=== PATIENT | female | born 1935 | race Caucasian/White ===

== ENCOUNTER 2023-10-18 17:01 | Inpatient (IN) | payer MEDICARE, OTHER, SELFPAY ==
[2023-10-18] VITALS (7 sets, daily range): BP systolic 135–164; BP diastolic 76–141; BMI 31.7
[2023-10-18 15:19] LABS: % Basophils 0.5 % (0-2); % Eosinophils 2.1 % (0-6); % Immature Granulocytes 0.6 % (0-0.5); % Lymphocytes 11.5 % (20.5-51.1); % Neutrophils 79.3 % (42.2-75.2); Absolute Basophils 0.1 10^3/uL (0-0.2); Absolute Eosinophils 0.3 10^3/uL (0-0.7); Absolute Immature Granulocytes 0.1 10^3/uL (0-0.05); Absolute Lymphocytes 1.5 10^3/uL (1.2-3.4); Absolute Monocytes 0.8 10^3/uL (0.1-0.6); Hematocrit 37.1 % (37.0-47.0); Hemoglobin 12.5 g/dL (12.0-16.0); Mean Corp Hgb Conc. 33.7 g/dL (33.0-37.0); Mean Corpuscular Hgb 31.6 pg (27.0-31.0); Mean Corpuscular Volume 93.7 fL (81.0-99.0); Mean Platelet Volume 10.6 fL (7.4-10.4); Nucleated Red Blood Cells % 0 %; Platelet Count 177 10^3/uL (130-400); Red Blood Cell Count 3.96 10^6/uL (4.20-5.40); Red Cell Dist. Width 12.6 % (11.5-14.5); White Blood Cell Count 12.6 10^3/uL (4.8-10.8)
[2023-10-18 15:33] LABS: ALT (SGPT) 20 U/L (0-35); AST (SGOT) 30 U/L (14-36); Albumin 4.1 g/dl (3.5-5.0); Alkaline Phosphatase 65 U/L (38-126); Blood Urea Nitrogen 29 mg/dl (7-17); Calcium 9.1 mg/dl (8.4-10.2); Carbon Dioxide 27 mmol/L (22-30); Chloride 105 mmol/L (98-107); Estimated Creatinine Clearance 56 ml/min; Glucose 97 mg/dl (70-99); Potassium 4.5 mmol/L (3.5-5.1); Sodium 137 mmol/L (135-145); Total Bilirubin 0.7 mg/dl (0.2-1.3); eGFR > 60.00
--- NOTE | 2023-10-18 16:00 | EDRN ---
this RN noticed that the pts PIV was lying next to the pt in the stretcher, LAC PIV site was not bleeding, this RN cleaned the LAC site and placed a pressure dressing, PIV catheter was in tact, this RN asked the pt what happened and the pt started
laughing and stated, 'I don't know dear, beats me', this RN notified the emergency room provider and stated that the pt does not need a PIV at this time and notified this RN not to place another PIV at this time
--- NOTE | 2023-10-18 16:00 | ED.GENMED ---
History of Present Illness
General
Chief Complaint: Fall
Source: patient
Exam Limitations: dementia
Time Seen by Provider: 10/18/23 14:22
Travel History
Have you had any contact with someone who has COVID-19?: No
Do you have any symptoms of coronavirus? Fever > 100 degrees, chills, cough, shortness of breath, sore throat, loss of taste or smell, muscle aches, or headache?: No
History of Present Illness
History of Present Illness:
88-year-old female who presents after fall at an extended care facility. Patient does have a history of dementia. Patient offers no complaints. No reported head strike. No loss consciousness.
Past History
Past History
ED Past Medical History: CAD, HTN, Hypercholesterolemia and Other (Sleep apnea, dementia)
ED Past Surgical History: None
Social History
Tobacco: Non-smoker
Alcohol: Occasional
Personal:
Living: with family
Phy Exam
Physical Exam
Physical Exam:
CONSTITUTIONAL Patient alert and oriented to person. Well-appearing. Vital signs reviewed.
HEAD atraumatic, normocephalic.
EYES eyelids normal to inspection, Extraocular muscles intact, Conjunctiva normal, Sclera normal.
NECK normal range of motion, Trachea midline, no jugular venous distention.
RESPIRATORY CHEST No respiratory distress noted, Chest expansion equal
ABDOMEN abdomen nontender, Bowel sounds normal. No distention.
BACK normal inspection, no obvious deformities
UPPER EXTREMITY range of motion normal, Motor strength normal, no cyanosis, no edema.
LOWER EXTREMITY no cyanosis, no edema. Unable to range left hip. Pain that is obvious with internal and external rotation during exam.
NEURO Speech clear and moving all extremities
Course
Orders/Labs/Results
Orders:
Orders
10/18/23 Breakfast
Regular
At Your Request: Non-Participating
10/18/23 14:32
Hip, Left 2-3 Views [CR Hip - LT w/wo Pel 2-3 Vw*] Urgent
Comment:
Reason For Exam: fall
Include a pelvis x-ray?: Yes
10/18/23 14:55
Complete Blood Count/With Diff Urgent
Comprehensive Metabolic Panel Urgent
10/18/23 16:24
Urinalysis Reflex To Culture Routine
10/18/23 16:25
Admit/Transfer Patient As Directed
Co-Sign Provider:
Level of Care: Inpatient admission
Assign to:: Medical/Surgical
Physician / Group: jeanette
Diagnosis: left hip fracture
Reason for Hospitalization: left hip fracture
Expected length of stay greater than two midnights?: Yes
ELOS- Estimated Length of Stay in days: 3
I certify the patient meets the requirements for IP care: Yes
10/18/23 16:26
Code Status As Directed
Resuscitation Status: Do not resuscitate
Reached after discussion with pt or family/Healthcare POA: Yes
DNR Bracelet Application ONCE
10/18/23 16:49
EKG [Electrocardiogram (*1)] Stat
Reason for Study: PreOp
10/18/23 17:41
Acetaminophen [Tylenol] 650 mg PO Q4HPRN PRN
Magnesium Hydroxide [Milk of Magnesia] 30 ml PO DAILYPRN PRN
Oxycodone [Roxicodone] 5 mg PO Q4HPRN PRN
Tamsulosin [Flomax] 0.4 mg PO DAILYPRN PRN
10/18/23 17:41
ORTHOPEDIC CONSULT Routine
Consulting Provider: Ron Luna
Was physician already notified: Yes
Activity As Directed
Activity Level: Bedrest
Bladder Scan As Directed
Follow Bladder Retention/Intermittent Cath Algorithm?: Yes
PRN if no void in __ hours: 6
Comment: if not voiding 6 hrs upon arrival to floor, bladder scan & follow algorithm
Intake/ Output As Directed
Frequency: Per unit guidelines
Pneumatic Compression Sleeves As Directed
Type: Thigh high
Straight Cath As Directed
Frequency: Per Retention Algorithm
Additional Instructions: straight cath as needed per acute urinary retention algorithm for 24 hrs
Additional Instructions: for bladder scan greater than 400 mL
Vital Signs As Directed
Frequency: Per unit guidelines
DX Deep Vein Thrombosis Video Routine
10/18/23 18:30
Carvedilol [Coreg] 3.125 mg PO BID@0830,1830
10/18/23 20:00
Docusate Sodium [Colace] 100 mg PO BID
Sennosides [Senokot] 17.2 mg PO BID
10/19/23 06:00
BMP [Basic Metabolic Panel] IN AM
CBC/No Diff [Complete Blood Count/No Diff] IN AM
10/19/23 08:30
Aspirin Chewable [Low Strength Aspirin] 81 mg PO DAILY@0830
Sertraline HCl [Zoloft] 75 mg PO DAILY@0830
10/20/23 Breakfast
NPO
Allow oral meds: Yes
Allow clear liquids: Sips of Clears
BMP [Basic Metabolic Panel] IN AM
CBC/No Diff [Complete Blood Count/No Diff] IN AM
10/21/23 06:00
BMP [Basic Metabolic Panel] IN AM
CBC/No Diff [Complete Blood Count/No Diff] IN AM
10/22/23 06:00
BMP [Basic Metabolic Panel] IN AM
CBC/No Diff [Complete Blood Count/No Diff] IN AM
10/23/23 06:00
BMP [Basic Metabolic Panel] IN AM
Abnormal Lab Results
10/18/23
14:55
WBC 12.6 H 10^3/uL
(4.8-10.8)
RBC 3.96 L 10^6/uL
(4.20-5.40)
MCH 31.6 H pg
(27.0-31.0)
MPV 10.6 H fL
(7.4-10.4)
Abs Immat Gran (auto) 0.1 H 10^3/uL
(0-0.05)
Absolute Neuts (auto) 10.0 H 10^3/uL
(1.4-6.5)
Absolute Monos (auto) 0.8 H 10^3/uL
(0.1-0.6)
Immature Gran % 0.6 H %
(0-0.5)
Neutrophils % 79.3 H %
(42.2-75.2)
Lymphocytes % 11.5 L %
(20.5-51.1)
BUN 29 H mg/dl
(7-17)
10/18/23 14:55
10/18/23 14:55
Vital Signs
Initial and Last Documented VS:
Initial Vital Signs
Temp Pulse Resp BP Pulse Ox
97.9 F 69 16 143/128 98
10/18/23 14:04 10/18/23 14:04 10/18/23 14:04 10/18/23 14:04 10/18/23 14:04
Last Documented Vital Signs
Temp Pulse Resp BP Pulse Ox
97.9 F 88 18 149/99 93
10/18/23 17:30 10/18/23 19:44 10/18/23 18:57 10/18/23 19:44 10/18/23 18:57
MDM/Problems Addressed
MDM/Problems Addressed:
Hip fracture
*Radiology
Radiology exam reviewed: preliminary read by ED provider (Left hip fracture)
*Pulse Oximetry
Patient hypoxic: no
*Critical Care Note
Total Time (30-74mins, 75-104mins- exclusive of procedures): Not Applicable
Data Reviewed
Source: patient
Prescriptions/Medications Considered But Not Given:
Consider pain medication patient appears quite comfortable
Further Testing Considered But Not Given:
Consider head CT but no evidence of head injury
Patient Management
Discussion with other providers: Hospitalist, Contract Assistant (Case discussed with orthopedic) and Radiologist
Escalation/DeEscalation of care consider admission/obs:
80-year-old with left hip fracture. Admit. Stable
ED Attending Note
-
Portions of this chart may have been created with voice recognition software.� Occasional wrong word or��sound alike� substitutions may have occurred due to the inherent limitations of voice recognition software.
Discharge Plan
Departure
Patient Disposition: Admit
Date of Disposition: 10/18/23
Time of Disposition: 16:02
Admit to: Med/Surg
Presentation/result/management discussed w/ accepting MD/DO: Hospitalist
Discharge Problem:
Closed hip fracture
Interventions
Interventions:
*Risk Screen - Suicide Last Done: 10/18/23 14:04
*General Assessment Last Done: 10/18/23 14:04
*Neglect/Abuse Screening Last Done: 10/18/23 14:04
ED- Fall Risk Assessment Last Done: 10/18/23 14:04
*ED COVID-19 Vaccine History Last Done: 10/18/23 14:04
*Nursing Disposition Last Done: 10/18/23 17:41
ED- Cardiac Assessment Last Done: 10/18/23 14:04
ED-Musculoskeletal Assessment Last Done: 10/18/23 14:04
ED- Neurological Assessment Last Done: 10/18/23 14:04
ED-Skin Assessment Last Done: 10/18/23 14:04
Discharge Date and Time
Discharge Date/Time: 10/18/23 17:41
--- NOTE | 2023-10-18 16:08 | HPS.HSE ---
Addendum entered and electronically signed by Romaine Velasco MD 10/18/23 17:37:
Seen and examined by me independently in collaboration with the nurse practitioner Kun.
Past medical history/social history/medication/allergies reviewed.
Lab data and imaging data reviewed.
Demented and pleasantly confused lady presents after having had a fall in her facility and sustaining a left hip fracture.
She is in the ER smiling and laughing with no meaningful conversations. She is in no extremis. No respiratory distress noted. Hemodynamically stable. Heart sounds S1 plus S2 heard regular. Do not appreciate any murmur at bedside. Abdomen
benign. Chest clear.
No lower extremity edema.
Lab data and imaging data reviewed.
Admit to hospital for surgical correction of her fracture.
Difficult to assess exercise capacity because of her dementia and she lives [facility]. But no known clinical risk predictors other than advanced age.EKG pending - if no acute ST/T changes she is felt to be at acceptable risk
for CV event for proposed surgery . No further cardiac testing would change her risk.
Left message to son.
She is DNR per living will sent from her facility.
Original Note:
Family Physician
-
Family Physician:
Chief Complaint
-
Fall with left hip fracture
History of Present Illness
88-year-old vaginoplasty, hyperlipidemia, hypertension, anxiety, GERD, hypertension presented to us with left hip pain status post fall at [facility]. Patient is a poor historian. Attempted to reach [facility]. No one answering the
phone. Patient had a fall and [facility] and was complaining of left hip pain. Patient complains of pain.
Hip x-ray with acute nondisplaced transcervical t fracture of the left femoral neck
Admitting for further management
Medical History
Past Medical History
Past Medical History: Reports Other
Additional Past Medical History:
Hyperlipidemia
Hypertension
anxiety
Dementia
GERD
Past Surgical History: Reports Other
Additional Past Surgical History:
Cervical laminectomy
Total abdominal hysterectomy
Appendectomy
Bilateral knee replacement
Cataract extraction
Social History
Unable to obtain full social history at this time due to: Dementia
Family History
Family History: Not pertinent
Allergies / Home Medications
Allergies reflects when Allergies were last updated in [employer].
Home Medications with original date entered in [employer]
Allergy/Medication List:
Allergies
Allergy/AdvReac Type Severity Reaction Status Date / Time
No Known Allergies Allergy Unverified 04/05/19 16:05
Home Medications
acetaminophen 325 mg tablet (Tylenol) 650 mg PO BID@0800,1930 10/18/23
acetaminophen 325 mg tablet (Tylenol) 650 mg PO Q4H PRN mild pain/fever>100.4 10/18/23
aspirin 81 mg chewable tablet 81 mg PO DAILY@0830 10/18/23
bisacodyl 10 mg rectal suppository 10 mg MN DAILY PRN q 3 days if no BM and MOM/lactulose ineffective 10/18/23
carvedilol 3.125 mg tablet 3.125 mg PO BID@0830,1830 10/18/23
magnesium hydroxide 400 mg/5 mL oral suspension (Milk of Magnesia) 30 ml PO HSPRN PRN constipation 10/18/23
sertraline 50 mg tablet 75 mg PO DAILY@0830 10/18/23
Review of Systems
-
Unable to obtain full review of systems at this time due to: Dementia
Physical Exam
Vital Signs
Vital Signs
Temp Pulse Resp BP Pulse Ox
97.9 F 69 16 135/76 96
10/18/23 14:04 10/18/23 14:04 10/18/23 14:04 10/18/23 14:54 10/18/23 14:50
Physical Exam
General: Well Developed, Well Nourished and No Apparent Distress
HEENT: NormoCephalic, Moist mucous membranes and Atraumatic
Respiratory: Clear
Cardiac: S1/S2 and Regular Rhythm; No Murmur or Rub
GI: Soft, Non Tender, Non Distended and Normal Bowel Sounds; No Organomegaly
Rectal: Deferred by Provider
Musculoskeletal: No Clubbing, No Cyanosis, No Edema and Other (Left lower extremity shortened and externally rotated)
Skin: No Rash
Neuro: Nonfocal/grossly intact
Laboratory Results
-
10/18/23 14:55
10/18/23 14:55
Laboratory Results
Total Bilirubin 0.7 mg/dl (0.2-1.3) 10/18/23 14:55
AST 30 U/L (14-36) 10/18/23 14:55
ALT 20 U/L (0-35) 10/18/23 14:55
Alkaline Phosphatase 65 U/L (38-126) 10/18/23 14:55
Data Reviewed
-
Diagnostic Radiology: Report Reviewed by me
Lab Data: Labs Reviewed by me
Impression/Plan
-
# Left hip fracture after fall
-hip x ray with ACUTE NONDISPLACED TRANSCERVICAL FRACTURE of the LEFT FEMORAL NECK.
-obtain EKG preoperatively
-bed rest
-PT/OT after orthopedics eval
-tylenol oxy for pain
-Hip precautions
-PT OT consulted
-Orthopedics consulted
# Leukocytosis likely stress reaction
-Patient is afebrile
-WBC 12.6
-Obtain urinalysis
# Hypertension
-Blood pressure stable in ER
-Coreg continued.
# Anxiety/dementia
-Sertraline continued
# DVT prophylaxis
-SCD
# CODE STATUS
-DNR
--- NOTE | 2023-10-18 17:25 | EDRN ---
this RN called the receiving unit and notified them that paper report was going to be tubed up
--- NOTE | 2023-10-18 18:28 | CON.ORTHO ---
Consultation
-
Date/Time Consultation Requested: 430 PM 10/18/2023
Date/Time Consultation Performed: 615 PM 10/18/2023
Requesting Provider: Primary
Performing Provider: Cheryl
Reason for Consultation: Left hip fracture
Consultation - Orthopedics
History
HPI: 88-year-old female history of dementia presented to the emergency department status post fall at her assisted living facility complaining of left hip pain and inability to bear weight. She was subsequently diagnosed with a left femoral neck
fracture admitted to the hospital service. Orthopedics was consulted for further evaluation and treatment. This evening upon evaluation patient is pleasantly confused. She is really unable to provide any meaningful information or history. Per
chart review, she does live at an assisted living facility in a dementia unit.
Allergies / Home Medications
Past medical history: Dementia, hyperlipidemia, hypertension, anxiety, GERD
Past surgical history: Bilateral total knee arthroplasty, appendectomy, cervical laminectomy, total abdominal hysterectomy, cataract
Social history: Dementia, lives at [facility]
Family history: Not pertinent
Allergy/AdvReac Type Severity Reaction Status Date / Time
No Known Allergies Allergy Unverified 04/05/19 16:05
�Medication �Instructions �Recorded
acetaminophen 325 mg tablet 650 mg PO BID@0800,1930 10/18/23
(Tylenol)
acetaminophen 325 mg tablet 650 mg PO Q4H PRN mild 10/18/23
(Tylenol) pain/fever>100.4
aspirin 81 mg chewable tablet 81 mg PO DAILY@0830 10/18/23
bisacodyl 10 mg rectal suppository 10 mg IA DAILY PRN q 3 days if no 10/18/23
BM and MOM/lactulose ineffective
carvedilol 3.125 mg tablet 3.125 mg PO BID@0830,1830 10/18/23
magnesium hydroxide 400 mg/5 mL 30 ml PO HSPRN PRN constipation 10/18/23
oral suspension (Milk of Magnesia)
sertraline 50 mg tablet 75 mg PO DAILY@0830 10/18/23
Vital Signs / Lab Results
Temp Pulse Resp BP Pulse Ox
97.9 F 82 16 141/82 99
10/18/23 17:30 10/18/23 17:30 10/18/23 17:30 10/18/23 17:30 10/18/23 17:30
10/18/23 14:55
10/18/23 14:55
10 point review systems reviewed and unable to be obtained from patient given dementia
General: Pleasantly confused, in no acute distress
Musculoskeletal left lower extremity
Skin intact, no erythema, no significant ecchymotic staining about the left hip
Extremity shortened externally rotated
There is no palpable ipsilateral knee effusion
There is well-healed anterior knee surgical incision over the knee
Positive EHL, FHL, ankle dorsiflexion, plantarflexion spontaneously, unable to comply with detailed motor or sensory examination
No facial grimace or palpable crepitation with palpation of long bones and joints on tertiary examination
Diagnostic studies
X-rays of left hip taken in emergency department and ibuprofen so. Radiology read was nondisplaced femoral neck fracture. On my read there is significant displacement with external rotation noted of the femur with larger profile of lesser
trochanter noted
Assessment / Plan
88-year-old female history of dementia status post fall with displaced left arm and neck fracture. Patient is unfortunately quite confused and demented and unable to meaningfully contribute any history taking. I will plan to try and contact her
medical power of divorce attorney to discuss her diagnosis and treatment options. Given the displaced nature of the femoral neck fracture, I would recommend proceeding with hemiarthroplasty pending our discussion with patient's medical power of divorce attorney.
Will plan to tentatively proceed with surgical intervention pending this discussion Saturday. Patient may eat tonight and plan to be n.p.o. at midnight Saturday into Thursday 10/19
Nonweightbearing left lower extremity
PT OT: Deferred until postoperative setting
DVT prophylaxis: Please hold midnight Saturday night/Saturday in preparation for OR
Pain control
Medical management per primary team
Plan: Tentative plans for left hip hemiarthroplasty Saturday pending discussion with patient's medical power of divorce attorney, medical clearance and or availability
Please reach out any questions or concerns
--- NOTE | 2023-10-18 18:43 | W.PN.UPDATE ---
Update Note
Progress Note Update
I did call and speak with the patient's son Vick at [phone] and discussed his mother's diagnosis and treatment options. After discussion of risks benefits and alternatives I did obtain verbal consent to proceed with left hip hemiarthroplasty
for patient's left femoral neck fracture. Plan to proceed to the OR 10/19.
--- NOTE | 2023-10-18 19:11 | PTCARENOTE ---
pt arrived to unit at 1745 via stretcher from ED. pt pleasantly confused. pulled over to bed, placed on bed alarm. VSS. grandson (and ) updated at the bedside. Physical assessment completed by this nurse.
[2023-10-18] MEDS: SENOKOT 17.1999999999999993 MG PO (19:44)
[2023-10-18] MEDS: COREG 3.125 MG PO (19:44)
[2023-10-18] MEDS: COLACE 100 MG PO (19:44)
[2023-10-18] MEDS: ROXICODONE 5 MG PO (19:50)
[2023-10-19 06:00] VITALS: BMI 30.1
[2023-10-19 07:03] VITALS: BP 111/65
[2023-10-19 07:19] LABS: Hematocrit 39.6 % (37.0-47.0); Hemoglobin 13.5 g/dL (12.0-16.0); Mean Corp Hgb Conc. 34.1 g/dL (33.0-37.0); Mean Corpuscular Hgb 31.9 pg (27.0-31.0); Mean Corpuscular Volume 93.6 fL (81.0-99.0); Platelet Count 173 10^3/uL (130-400); Red Blood Cell Count 4.23 10^6/uL (4.20-5.40); Red Cell Dist. Width 12.4 % (11.5-14.5); White Blood Cell Count 11.9 10^3/uL (4.8-10.8)
[2023-10-19 07:49] LABS: Blood Urea Nitrogen 24 mg/dl (7-17); Calcium 9.4 mg/dl (8.4-10.2); Carbon Dioxide 23 mmol/L (22-30); Chloride 105 mmol/L (98-107); Estimated Creatinine Clearance 55 ml/min; Glucose 118 mg/dl (70-99); Potassium 4.2 mmol/L (3.5-5.1); Sodium 138 mmol/L (135-145); eGFR > 60.00
[2023-10-19] MEDS: LOW STRENGTH ASPIRIN 81 MG PO (08:32)
[2023-10-19] MEDS: SENOKOT 17.1999999999999993 MG PO ×2 (08:32→19:43)
[2023-10-19] MEDS: COLACE 100 MG PO ×2 (08:32→19:43)
[2023-10-19] MEDS: ZOLOFT 75 MG PO (08:32)
[2023-10-19] MEDS: COREG 3.125 MG PO ×2 (08:33→17:36)
--- NOTE | 2023-10-19 11:04 | W.PN.HOSP.TC ---
Today's Communication/Plan
-
OR tomorrow.
Assessment / Plan
Assessment / Plan
# Left hip fracture after fall
-hip x ray with ACUTE NONDISPLACED TRANSCERVICAL FRACTURE of the LEFT FEMORAL NECK.
-Overall plan for tomorrow for left hip hemiarthroplasty
-Continue the pain regimen and bedrest for now.
# Preop cardiology eval-patient without any clinical risk predictors for CHD. EKG shows sinus rhythm with no acute ST-T changes. Creatinine normal. She is at acceptable risk for her age for proposed procedure. No cardiac testing would change the
risk so would proceed as planned with surgery tomorrow.
# Leukocytosis likely stress reaction
-Patient is afebrile
-Improved WBC.
# Hypertension
-Blood pressure stable in ER
-Coreg continued.
# Anxiety/dementia
-Sertraline continued
# DVT prophylaxis
-SCD
# CODE STATUS
-DNR
It was brought to my attention via her nurse at that she had a fall at facility and apparently hit her head. Check CT head.
Anticipated Discharge: > 48 hours
Subjective/Interval History
-
Date of Service: October 19, 2023
Pleasantly confused like yesterday. No overnight events
Objective Data
-
Labs:
Laboratory Results
10/19/23
06:52
WBC 11.9 H
Hgb 13.5
Hct 39.6
Plt Count 173
Sodium 138
Potassium 4.2
Chloride 105
Carbon Dioxide 23
BUN 24 H
Creatinine 0.7
Glucose 118 H
Calcium 9.4
Vital Signs:
Vital Signs
Temp Pulse Resp BP Pulse Ox
98.5 F 98 16 111/65 92
10/19/23 07:03 10/19/23 08:33 10/19/23 07:03 10/19/23 08:33 10/19/23 07:03
I&O
10/18/23 10/19/23 10/20/23
06:59 06:59 06:59
Intake Total 120 / 120
Output Total 325 / 325
Balance -205 / -205
Review of Systems
-
Unable to obtain full review of systems at this time due to: Dementia
Physical Exam
-
General: No Apparent Distress and Comfortable
Respiratory: Non Labored Respirations; Negative Accessory Resp Muscle Use
Cardiac: Regular Rhythm and S1/S2
GI: Soft
Neuro: Awake, Alert and Oriented (self only)
Psych: Calm and Confused; Negative Agitated
Data Reviewed
-
Labs: Labs Reviewed by me
[2023-10-19 15:35] VITALS: BP 128/68
[2023-10-19 23:00] VITALS: BP 120/78
[2023-10-20] VITALS (21 sets, daily range): BP systolic 70–136; BP diastolic 45–91
[2023-10-20 07:50] LABS: Hematocrit 37.4 % (37.0-47.0); Hemoglobin 12.9 g/dL (12.0-16.0); Mean Corp Hgb Conc. 34.5 g/dL (33.0-37.0); Mean Corpuscular Hgb 31.4 pg (27.0-31.0); Mean Platelet Volume 11.1 fL (7.4-10.4); Platelet Count 148 10^3/uL (130-400); Red Blood Cell Count 4.11 10^6/uL (4.20-5.40); Red Cell Dist. Width 12.3 % (11.5-14.5); White Blood Cell Count 11.9 10^3/uL (4.8-10.8)
[2023-10-20 08:11] LABS: Blood Urea Nitrogen 22 mg/dl (7-17); Calcium 8.9 mg/dl (8.4-10.2); Carbon Dioxide 24 mmol/L (22-30); Chloride 104 mmol/L (98-107); Estimated Creatinine Clearance 55 ml/min; Glucose 114 mg/dl (70-99); Potassium 3.9 mmol/L (3.5-5.1); Sodium 137 mmol/L (135-145); eGFR > 60.00
--- NOTE | 2023-10-20 10:32 | OR.RPT ---
Operative Report
Operative Report
Anesthesia Type:
General
Operative Indications:
Displaced left femoral neck fracture
Operative Findings :
Same
Complications:
None
Implants:
Bettye LD fracture size 13 cemented femoral stem, 46 bipolar shell, +7 head
Procedure and Technique:
Left cemented hip hemiarthroplasty
INDICATIONS FOR PROCEDURE:
88-year-old female history of dementia presented to the emergency department status post fall at her shelter with left hip pain and inability to bear weight. She was subsequently diagnosed left femoral neck fracture. She was admitted to the
hospital service and orthopedics is consulted for further evaluation and treatment. Patient was unfortunately unable to provide any history. I did discuss with her son the details of her fracture and treatment options. We discussed both surgical
and nonsurgical options. After discussion, written informed consent was obtained from her son who is her medical power of ip attorney. We discussed risks benefits and alternatives of surgery. Discussed the usual expected perioperative postoperative
course.
OPERATIVE PROCEDURE:
Patient was seen and identified in the preoperative holding area. Operative extremity was marked. Patient was taken to the operating room and anesthesia was administered by the anesthesia providers. Patient was then placed in a lateral decubitus
position with the use of a beanbag. All bony prominences were well-padded. Operative extremity was then prepped and draped in normal sterile fashion. Timeout was performed again identifying the correct operative extremity. Preoperative
antibiotics were addressed. Standard posterolateral approach to the hip was taken. Sharp dissection was carried through skin and subcutaneous tissues and deep fascial layer. Hemostasis was achieved with electrocautery. Hip was then placed on
slight internal rotation to place the external rotators on stretch. Piriformis was identified and a retractor was then placed under the gluteus medius and minimus. Piriformis and short external rotators were taken down and tagged. A T capsulotomy
was then performed and capsular leaflets were also tagged. The fracture was identified and a freshen up cut was performed. The femoral head was then removed and sized. Appropriately sized ball on a stick was then placed into the acetabulum and
felt to have appropriate suction fit. Attention was then turned to the proximal femur where soft tissue remnants were removed from the piriformis fossa. Remnant neck was removed with the use of a cookie cutter. Canal finder was then placed in
addition to lateralizing reamer. Stepwise broaching was then performed to the appropriate size. Implants were then trialed and found to have appropriate stability and deep flexion, internal rotation, shuck and adduction. Implants were then
removed and canal was copiously irrigated normal saline solution. Cement restrictor was then placed. Pressurized cement was then placed into the femoral canal and appropriately sized femoral broach was then placed in the appropriate version.
After cement had hardened, final implants were then placed and the hip was again taken through range of motion and found to be quite stable. Satisfied with the extent of surgery, wound was copiously irrigated with normal saline solution and a
Betadine solution. The capsule, piriformis and short external rotators were then repaired through osseous tunnels into the greater trochanter. Wound was then closed in a layered fashion utilizing #1 Vicryl for deep fascial layer, 2-0 Vicryl for
subcutaneous layer and barb for skin. Aquacel dressing was then placed. Anesthesia was reversed and patient was taken to PACU in a stable condition. Postoperative plans will include weightbearing to the patient's tolerance in the operative
extremity. Posterior hip precautions will be advised. Recommend DVT prophylaxis consisting of renally dosed Lovenox daily for 28 days unless patient is already on baseline anticoagulation. Will plan to see patient back in 2 weeks for
postoperative evaluation with planned removal of barb.
Disposition:
PACU, stable condition
--- NOTE | 2023-10-20 11:56 | CM ---
Pt is a resident at [facility]
Admitted s/p fall - adm with fx Left hip
OR today for repair
PT/OT pending post-op
CM will attempt to reach family to complete initial assessment
Plan - anticipate [facility] when medically ready
[2023-10-20] MEDS: NSS 1000 IV ×2 (12:01→20:05)
--- NOTE | 2023-10-20 12:30 | PTCARENOTE ---
Pt arrived back from the OR around 1215. Pt very sleepy but arousable upon arrival. IVF hooked up. Neurovascular check intact. Dressing to L hip CDI. VSS. Pt is currently resting in bed. Call garcia is within reach.
[2023-10-20] MEDS: COREG PO ×2 (13:04→17:47)
[2023-10-20] MEDS: COLACE PO (13:05)
[2023-10-20] MEDS: SENOKOT PO (13:54)
--- NOTE | 2023-10-20 14:59 | W.PN.HOSP.TC ---
Today's Communication/Plan
-
cw post op Ortho care
Assessment / Plan
Assessment / Plan
# Left hip fracture after fall
-hip x ray with ACUTE NONDISPLACED TRANSCERVICAL FRACTURE of the LEFT FEMORAL NECK.
-s/p left hip hemiarthroplasty today
-Continue the pain regimen , PT ,DVT prophylaxis per ortho
# Leukocytosis likely stress reaction
-Patient is afebrile
-Improved WBC.
# Hypertension
-Blood pressure stable in ER
-Coreg continued.
# Anxiety/dementia
-Sertraline continued
# DVT prophylaxis
-SCD
# CODE STATUS
-DNR
Anticipated Discharge: 24 - 48 hours
Subjective/Interval History
-
Date of Service: October 20, 2023
post op day 0 after L MP
Currently back in the room. Is sleepy but arousable.
No acute distress noted
Objective Data
-
Labs:
Laboratory Results
10/20/23
06:41
WBC 11.9 H
Hgb 12.9
Hct 37.4
Plt Count 148
Sodium 137
Potassium 3.9
Chloride 104
Carbon Dioxide 24
BUN 22 H
Creatinine 0.7
Glucose 114 H
Calcium 8.9
Vital Signs:
Vital Signs
Temp Pulse Resp BP Pulse Ox
99.9 F 94 20 106/71 96
10/20/23 11:45 10/20/23 11:30 10/20/23 11:30 10/20/23 11:30 10/20/23 11:30
I&O
10/19/23 10/20/23 10/21/23
06:59 06:59 06:59
Intake Total 120 / 120 900 / 900 750 / 750
Output Total 325 / 325 1150 / 1150
Balance -205 / -205 -250 / -250 750 / 750
Review of Systems
-
Unable to obtain full review of systems at this time due to: Dementia and Other (Plus she is sleepy)
Physical Exam
-
General: No Apparent Distress
HEENT: Moist Mucous Membranes
Respiratory: Clear to Auscultation (anteriorly) and Non Labored Respirations; Negative Accessory Resp Muscle Use
Cardiac: Regular Rhythm and S1/S2
GI: Soft
Neuro: Sedated
Psych: Calm
Data Reviewed
-
Labs: Labs Reviewed by me
[2023-10-20] MEDS: LOW STRENGTH ASPIRIN PO (17:21)
[2023-10-20] MEDS: ZOLOFT PO (17:22)
[2023-10-20] MEDS: ANCEF 5 IV (17:24)
--- NOTE | 2023-10-20 17:43 | PTCARENOTE ---
Since pt has been back from the OR, pt has been very drowsy. Pt arouses to touch but goes right back to sleep. Daughter at the bedside, stated she tried to give her applesauce and she didnt take it. This RN felt it was not safe to give pt any oral
medication. Dr. Velasco agreed, MD order to hold PO meds until pt alert and awake enough to take them safely. Pt is still currently drowsy and sleeping in the bed. Neurovascular checks intact. Ice to L hip, dressing CDI. Hip abductor in place. VSS.
Bed alarm on. Call garcia is within reach.
[2023-10-20] MEDS: COLACE 100 MG PO (19:57)
[2023-10-20] MEDS: SENOKOT 17.1999999999999993 MG PO (19:58)
[2023-10-21] VITALS (8 sets, daily range): BP systolic 98–134; BP diastolic 57–95; PULSE 115–117; O2SAT 93
[2023-10-21] MEDS: ANCEF 5 IV (01:44)
[2023-10-21] MEDS: NSS 1000 IV (05:56)
[2023-10-21] MEDS: TYLENOL 650 MG PO ×2 (06:28→14:13)
[2023-10-21 06:58] LABS: Hemoglobin 9.5 g/dL (12.0-16.0); Mean Corp Hgb Conc. 33.9 g/dL (33.0-37.0); Mean Corpuscular Hgb 31.6 pg (27.0-31.0); Mean Platelet Volume 11.3 fL (7.4-10.4); Platelet Count 142 10^3/uL (130-400); Red Blood Cell Count 3.01 10^6/uL (4.20-5.40); Red Cell Dist. Width 12.5 % (11.5-14.5); White Blood Cell Count 14.3 10^3/uL (4.8-10.8)
[2023-10-21 07:08] LABS: Blood Urea Nitrogen 29 mg/dl (7-17); Calcium 8.3 mg/dl (8.4-10.2); Carbon Dioxide 25 mmol/L (22-30); Chloride 104 mmol/L (98-107); Estimated Creatinine Clearance 48 ml/min; Glucose 131 mg/dl (70-99); Potassium 4.3 mmol/L (3.5-5.1); Sodium 134 mmol/L (135-145); eGFR > 60.00
--- NOTE | 2023-10-21 07:48 | W.PN.ORTHO ---
Today's Communication / Plan
-
88 yo F dementia POD 1 s/p Left hip sourav
WBAT LLE
PT/OT- posterior hip precautions
DVT ppx: lovenox X 28 days
Pain control
Medical management per primary team
Follow up outpatient with myself in 2-3 weeks for repeat evaluation with removal of barb
Subjective
.
.:
Patient resting comfortably in bed. Unable to participate in meaningful history taking or exam.
Vital Signs and Labs
.
Vital Signs and Labs:
Lab Results
10/21/23 06:29
10/21/23 06:29
Temp Pulse Resp BP Pulse Ox
97.8 F 110 18 105/62 99
10/21/23 07:34 10/21/23 07:34 10/21/23 07:34 10/21/23 07:34 10/21/23 07:34
Physical Exam
-
Gen: NAD, pleasantly confused
MSK LLE
Moderate swelling thigh, dressing with minimal drainage
Spontaneously moving toes, unable to comply with meaningful motor sensory exam
[2023-10-21] MEDS: SENOKOT 17.1999999999999993 MG PO ×2 (10:19→20:26)
[2023-10-21] MEDS: COREG 3.125 MG PO ×2 (10:19→17:35)
[2023-10-21] MEDS: LOW STRENGTH ASPIRIN 81 MG PO (10:19)
[2023-10-21] MEDS: ZOLOFT 75 MG PO (10:20)
[2023-10-21] MEDS: COLACE 100 MG PO ×2 (10:20→20:25)
[2023-10-21] MEDS: LOVENOX 40 MG SC (10:20)
--- NOTE | 2023-10-21 10:38 | W.PN.HOSP.TC ---
Today's Communication/Plan
-
follow-up PT OT eval
DC planning-back to [facility] tomorrow if stable.
Assessment / Plan
Assessment / Plan
# Left hip fracture after fall
-hip x ray with ACUTE NONDISPLACED TRANSCERVICAL FRACTURE of the LEFT FEMORAL NECK.
-s/p left hip hemiarthroplasty10/19
-Continue the pain regimen , PT ,DVT prophylaxis per ortho
# Leukocytosis likely stress reaction
-Patient is afebrile
-Improved WBC and back up after surgery . Afeb, nontoxic .Follow in am .
# Post op anemia -suspect sec to acute blood loss anemia. Follow for now
# Hypertension
-Blood pressure stable
-Coreg continued.
# Anxiety/dementia -No major Behavioral Disturbances.
-Sertraline continued
# DVT prophylaxis
-SCD
# CODE STATUS
-DNR
Anticipated Discharge: Within 24 hours
Subjective/Interval History
-
Date of Service: October 21, 2023
pleasantly confused
much improved with alertness back to normal
tolerating a diet
Off of oxygen
Objective Data
-
Labs:
Laboratory Results
10/21/23
06:29
WBC 14.3 H
Hgb 9.5 L D
Hct 28.0 L
Plt Count 142
Sodium 134 L
Potassium 4.3
Chloride 104
Carbon Dioxide 25
BUN 29 H
Creatinine 0.8
Glucose 131 H
Calcium 8.3 L
Vital Signs:
Vital Signs
Temp Pulse Resp BP Pulse Ox
97.8 F 110 18 105/62 99
10/21/23 07:34 10/21/23 07:34 10/21/23 07:34 10/21/23 07:34 10/21/23 07:34
I&O
10/20/23 10/21/23 10/22/23
06:59 06:59 06:59
Intake Total 900 / 900 2610 / 2610
Output Total 1150 / 1150 950 / 950
Balance -250 / -250 1660 / 1660
Review of Systems
-
Unable to obtain full review of systems at this time due to: Dementia
Physical Exam
-
General: No Apparent Distress
HEENT: Moist Mucous Membranes
Respiratory: Clear to Auscultation
Cardiac: Regular Rhythm and S1/S2
GI: Soft
Neuro: Awake, Alert and Oriented
Psych: Calm and Confused; Negative Agitated
Data Reviewed
-
Labs: Labs Reviewed by me
--- NOTE | 2023-10-21 11:10 | CM ---
Received request from Syed in admissions at [facility] for an update. Provided her an update as to patient's status.
Plan: Case management will continue to follow and assist with discharge planning. Back to [facility] when stable.
[2023-10-21] MEDS: NSS IV (17:22)
[2023-10-22 07:13] LABS: Hematocrit 25.1 % (37.0-47.0); Hemoglobin 8.4 g/dL (12.0-16.0); Mean Corp Hgb Conc. 33.5 g/dL (33.0-37.0); Mean Corpuscular Hgb 32.2 pg (27.0-31.0); Mean Corpuscular Volume 96.2 fL (81.0-99.0); Mean Platelet Volume 11.9 fL (7.4-10.4); Platelet Count 144 10^3/uL (130-400); Red Blood Cell Count 2.61 10^6/uL (4.20-5.40); Red Cell Dist. Width 12.4 % (11.5-14.5); White Blood Cell Count 12.7 10^3/uL (4.8-10.8)
[2023-10-22 07:43] VITALS: BP 148/60
[2023-10-22] MEDS: SENOKOT 17.1999999999999993 MG PO (07:49)
[2023-10-22] MEDS: COLACE 100 MG PO (07:49)
[2023-10-22] MEDS: LOW STRENGTH ASPIRIN 81 MG PO (07:49)
[2023-10-22] MEDS: COREG 3.125 MG PO ×2 (07:49→17:30)
[2023-10-22] MEDS: LOVENOX 40 MG SC (07:51)
[2023-10-22] MEDS: ZOLOFT 75 MG PO (07:53)
[2023-10-22 08:21] LABS: Blood Urea Nitrogen 24 mg/dl (7-17); Calcium 8.1 mg/dl (8.4-10.2); Carbon Dioxide 27 mmol/L (22-30); Chloride 105 mmol/L (98-107); Estimated Creatinine Clearance 55 ml/min; Glucose 117 mg/dl (70-99); Potassium 4.3 mmol/L (3.5-5.1); Sodium 136 mmol/L (135-145); eGFR > 60.00
--- NOTE | 2023-10-22 13:08 | W.PN.HOSP.TC ---
Today's Communication/Plan
-
DC
Assessment / Plan
Assessment / Plan
# Left hip fracture after fall
-hip x ray with ACUTE NONDISPLACED TRANSCERVICAL FRACTURE of the LEFT FEMORAL NECK.
-s/p left hip hemiarthroplasty10/19
-Continue the pain regimen , PT ,DVT prophylaxis per ortho
# Leukocytosis likely stress reaction
-Patient is afebrile
-Improved WBC . Afeb, nontoxic
# Post op anemia -suspect sec to acute blood loss anemia. Follow for now
# Hypertension
-Blood pressure stable
-Coreg continued.
# Anxiety/dementia -No major Behavioral Disturbances.
-Sertraline continued
# Hx of DYLAN - hasnt been on CPAP for many years now .Nocturnal hypoxemia noted. SaO2 during alertness is ok .Son advised to return to sleep study physician . In mean time provide 2l NC at HS .
# DVT prophylaxis
-SCD
# CODE STATUS
-DNR
Medically stable for discharge rehab
Total time of discharge 35 minutes
Anticipated Discharge: Today
Subjective/Interval History
-
Date of Service: October 22, 2023
Pleasantly confused. No overnight events.
Objective Data
-
Labs:
Laboratory Results
10/22/23
06:37
WBC 12.7 H
Hgb 8.4 L
Hct 25.1 L
Plt Count 144
Sodium 136
Potassium 4.3
Chloride 105
Carbon Dioxide 27
BUN 24 H
Creatinine 0.7
Glucose 117 H
Calcium 8.1 L
Vital Signs:
Vital Signs
Temp Pulse Resp BP Pulse Ox
97.8 F 96 16 148/60 94
10/22/23 07:43 10/22/23 07:49 10/22/23 07:43 10/22/23 07:49 10/22/23 07:43
I&O
10/21/23 10/22/23 10/23/23
06:59 06:59 06:59
Intake Total 2610 / 2610 120 / 120
Output Total 950 / 950
Balance 1660 / 1660 120 / 120
Review of Systems
-
Unable to obtain full review of systems at this time due to: Dementia
Physical Exam
-
General: No Apparent Distress
HEENT: Moist Mucous Membranes
Respiratory: Clear to Auscultation
Cardiac: Regular Rhythm and S1/S2
GI: Soft
Neuro: Awake and Alert; Negative Oriented
Psych: Calm and Confused; Negative Agitated
Data Reviewed
-
Labs: Labs Reviewed by me
--- NOTE | 2023-10-22 13:13 | W.DS.TRANS ---
DC Summary - [place]
-
Discharge Instructions:
Discharge Diagnosis/Procedures Left hip fracture after fall
-hip x ray with ACUTE NONDISPLACED TRANSCERVICAL
FRACTURE of the LEFT FEMORAL NECK.
-s/p left hip hemiarthroplasty10/19
Diet Regular
Activity As tolerated
Driving Restrictions No driving
Bathing Restrictions None
Blood Work CBC in one week
Other Services PT,OT
Instructions:
Stand-Alone Forms:
Changes to Home Medications: Yes
Discharge Medications:
DC Medications w/original date entered in [facility]
acetaminophen 325 mg tablet (Tylenol) 650 mg PO BID@0800,1930 Pain 10/18/23
acetaminophen 325 mg tablet (Tylenol) 650 mg PO Q4H PRN mild pain/fever>100.4 10/18/23
aspirin 81 mg chewable tablet 81 mg PO DAILY@0830 Blood Clot Prevention/Tx 10/18/23
bisacodyl 10 mg rectal suppository 10 mg [place] DAILY PRN q 3 days if no BM and MOM/lactulose ineffective 10/18/23
carvedilol 3.125 mg tablet 3.125 mg PO BID@0830,1830 Heart Disease/Condition 10/18/23
magnesium hydroxide 400 mg/5 mL oral suspension (Milk of Magnesia) 30 ml PO HSPRN PRN constipation 10/18/23
sertraline 50 mg tablet 75 mg PO DAILY@0830 Mental Health/Anxiety 10/18/23
enoxaparin 40 mg/0.4 mL subcutaneous syringe 40 mg (0.4 mL) SC DAILY #1 mL 10/22/23
Home Medication Changes
New medication - lovenox DVT prophalxis dose
Pending Results: No
--- NOTE | 2023-10-22 14:56 | CM ---
Spoke with attending who stated that patient has been medically cleared for discharge. Placed a call to Syed in admissions at [facility] who expressed that they have a bed for patient today. She stated that she will text # for report and fax.
RN updated as well as [facility] community health advisor. IMM completed. Transfer sheet and medical necessity provided to community health advisor.
Patient's son updated.
Plan: Case management will continue to follow and assist with discharge planning. [facility] today.
[2023-10-22 15:00] VITALS: BP 113/58
--- NOTE | 2023-10-22 17:59 | PTCARENOTE ---
Attempted to call report to [facility] twice. The first time I called I was put on hold for 5 minutes and then hung up on. I called right back a second time and no answer. Transport to bead picker patient at 20:00.
--- NOTE | 2023-10-22 20:49 | PTCARENOTE ---
Patient picked up via Acute Care transport @1999 from unit.
== END 2023-10-22 20:20 | DRG 522 ==
LOC: 3 WEST ACU 17:01
PROVIDERS: Registered Nurse; ADMITTING PHYSICIAN Internal Medicine; CONSULT PHYSICIAN Orthopaedic Surgery; EMERGENCY PHYSICIAN Emergency Medicine; FAMILY PHYSICIAN Student in an Organized Health Care Education/Training Program
PROC: 0SRS0J9 Replacement of Left Hip Joint, Femoral Surface with Synthetic Substitute, Cemented, Open Approach (ICD-10-PCS; 2023-10-20)
DX: S72.032A Displaced midcervical fracture of left femur, initial encounter for closed fracture (principal)
CPT/HCPCS: 70450; 73502; 80048; 80053; 85025; 85027; 86850; 86900; 86901; 87070; 93005; 97163; 97167; 99285; C1713; C1776

== ENCOUNTER → 2023-11-01 10:15 | Outpatient (REF) | payer OTHER, MEDICARE, SELFPAY ==
[2023-11-01 12:01] LABS: Iron 39 ug/dl (37-170)
[2023-11-01 12:10] LABS: Percent Saturation 14 % (20-50); Total Iron Binding Capacity 276 ug/dl (265-497)
[2023-11-01 12:50] LABS: Vitamin B12 394 pg/ml (239-931)
== END ==
LOC: OLABN 10:15
PROVIDERS: ATTENDING PHYSICIAN Student in an Organized Health Care Education/Training Program
DX: D64.9 Anemia, unspecified (principal)
CPT/HCPCS: 36415; 82272; 82607; 82728; 83540; 83550

== ENCOUNTER 2023-11-06 17:10 | Inpatient (IN) | payer MEDICARE, OTHER, SELFPAY ==
[2023-11-06] VITALS (41 sets, daily range): BP systolic 95–146; BP diastolic 43–114; BMI 29.3
--- NOTE | 2023-11-06 07:57 | ED.MUSCINJ ---
HPI-Injury
<Lucas Canada PA-C - Last Filed: 11/06/23 15:09>
General
Chief Complaint: Musculo-Skeletal Complaint
Source: ambulance crew and intermediate
Time Seen by Provider: 11/06/23 07:42
Travel History
Have you had any contact with someone who has COVID-19?: No
Do you have any symptoms of coronavirus? Fever > 100 degrees, chills, cough, shortness of breath, sore throat, loss of taste or smell, muscle aches, or headache?: No
History of Present Illness-Injury
Initial Injury comments:
88-year-old female with history of dementia presents from [facility] via EMS after staff noticed some swelling and protrusion of the left hip. She was here about 2 weeks ago for left femoral neck fracture that was treated with a bipolar
hemiarthroplasty. Sometime yesterday staff noted that her hip looked different and they had ordered a stat portable x-ray which from the nurses reports demonstrated a potential dislocation. Patient has no ability to provide any valuable history
given her level of dementia. She is pleasant currently
Past History
<Lucas Canada PA-C - Last Filed: 11/06/23 15:09>
Past History
ED Past Medical History: CAD, HTN, Hypercholesterolemia and Other (Sleep apnea, dementia)
ED Past Surgical History: None
Social History
Tobacco: Non-smoker
Alcohol: Occasional
Personal:
Living: with family
Phy Exam
<PETE Clemente Last Filed: 11/06/23 15:09>
Physical Exam
Physical Exam:
General: Well-appearing female no acute respiratory distress
HEENT: Normocephalic no trauma noted
Heart: Regular rate and rhythm no murmurs
Lungs: Clear no wheeze or rales
Musculoskeletal exam: Left hip is tender laterally. Surgical incisions well-approximated. Subtle serous drainage noted from the inferior portion of the incision. No significant surrounding erythema
Extremities: No cyanosis
Injury Course
<Lucas Canada PA-C - Last Filed: 11/06/23 15:09>
Orders/Labs/Results
Orders:
Orders
11/06/23 07:54
CR Hip - LT w/wo Pel 2-3 Vw* Urgent
Comment:
Reason For Exam: left hip pain
Include a pelvis x-ray?: Yes
11/06/23 09:24
Propofol [Diprivan] 20 ml .ROUTE .STK-MED
11/06/23 11:56
Propofol [Diprivan] 20 ml .ROUTE .STK-MED
11/06/23 13:26
0.9% Sodium Chloride 500 ml [Nss] 500 ml IV BOLUS
11/06/23 13:33
Complete Blood Count/With Diff Urgent
Comprehensive Metabolic Panel Urgent
11/06/23 13:36
Propofol [Diprivan] 80 mg IV NOW STA
11/06/23 14:56
Blood Bank Products [* Blood Bank Products] Urgent
Blood Bank Products: *Packed RBC Leuko(PRBC's)
Quantity: 1
Transfuse Today: Yes
Reason: Anemia
Abnormal Lab Results
11/06/23
13:33
RBC 2.26 L 10^6/uL
(4.20-5.40)
Hgb 6.9 L* g/dL
(12.0-16.0)
Hct 22.0 L %
(37.0-47.0)
MCHC 31.4 L g/dL
(33.0-37.0)
Abs Immat Gran (auto) 0.2 H 10^3/uL
(0-0.05)
Absolute Monos (auto) 1.1 H 10^3/uL
(0.1-0.6)
Immature Gran % 2.6 H %
(0-0.5)
Lymphocytes % 16.0 L %
(20.5-51.1)
Monocytes % 14.1 H %
(1.7-9.3)
BUN 26 H mg/dl
(7-17)
Glucose 104 H mg/dl
(70-99)
Total Protein 5.6 L g/dl
(6.3-8.2)
Albumin 2.9 L g/dl
(3.5-5.0)
11/06/23 13:33
11/06/23 13:33
<Nacho English, DO - Last Filed: 11/06/23 13:27>
Orders/Labs/Results
Orders:
Orders
11/06/23 07:54
CR Hip - LT w/wo Pel 2-3 Vw* Urgent
Comment:
Reason For Exam: left hip pain
Include a pelvis x-ray?: Yes
11/06/23 09:24
Propofol [Diprivan] 20 ml .ROUTE .STK-MED
11/06/23 11:56
Propofol [Diprivan] 20 ml .ROUTE .STK-MED
11/06/23 13:26
0.9% Sodium Chloride 500 ml [Nss] 500 ml IV BOLUS
11/06/23 13:33
Complete Blood Count/With Diff Urgent
Comprehensive Metabolic Panel Urgent
11/06/23 13:36
Propofol [Diprivan] 80 mg IV NOW STA
11/06/23 14:56
Blood Bank Products [* Blood Bank Products] Urgent
Blood Bank Products: *Packed RBC Leuko(PRBC's)
Quantity: 1
Transfuse Today: Yes
Reason: Anemia
Abnormal Lab Results
11/06/23
13:33
RBC 2.26 L 10^6/uL
(4.20-5.40)
Hgb 6.9 L* g/dL
(12.0-16.0)
Hct 22.0 L %
(37.0-47.0)
MCHC 31.4 L g/dL
(33.0-37.0)
Abs Immat Gran (auto) 0.2 H 10^3/uL
(0-0.05)
Absolute Monos (auto) 1.1 H 10^3/uL
(0.1-0.6)
Immature Gran % 2.6 H %
(0-0.5)
Lymphocytes % 16.0 L %
(20.5-51.1)
Monocytes % 14.1 H %
(1.7-9.3)
BUN 26 H mg/dl
(7-17)
Glucose 104 H mg/dl
(70-99)
Total Protein 5.6 L g/dl
(6.3-8.2)
Albumin 2.9 L g/dl
(3.5-5.0)
11/06/23 13:33
11/06/23 13:33
Procedures
<Lucas Canada PA-C - Last Filed: 11/06/23 15:09>
Moderate Sedation
Moderate Sedation Procedure End Time: 13:06
<Nacho English DO - Last Filed: 11/06/23 13:27>
Moderate Sedation
ASA Risk Score: Class III
Chart and allergies reviewed: Yes
Consent for anesthesia obtained: Yes
Time out completed (validating right patient & procedure): Yes
Moderate Sedation Start Time(when first medication is given): 09:33
History of difficult intubation: No
Airway free of obstruction: Yes
Patient has a gag reflex: Yes
Patient is able to open mouth: Yes
Patient has no dentures: Yes
Patient has no loose teeth: Yes
Medication administered by Provider during Moderate Sedation: IV Propofol (mg)
Total dose administered: 100
Time drug administered: 09:33
Moderate Sedation Procedure End Time: 09:49
Comment: Of note, the patient had a second moderate sedation - 80mg 1255pm
<Lucas Canada PA-C - Last Filed: 11/06/23 15:09>
MDM/Problems Addressed
Differential Diagnosis Includes:
After speaking with the nursing staff at [facility] there was concern for possible left hip dislocation. X-rays pending. Patient cannot provide any history. She seems tender over the lateral hip
<Lucas Canada PA-C - Last Filed: 11/06/23 15:09>
*Critical Care Note
Total Time (30-74mins, 75-104mins- exclusive of procedures): Not Applicable
<Lucas Canada PA-C - Last Filed: 11/06/23 15:09>
Update Note
Update Note:
I personally visualized x-rays of the left hip which demonstrate a superior dislocation of the prosthesis. There is no associated fracture. Discussed findings with patient's granddaughter who is now in the room and the son who is the power of
contract attorney over the telephone. Also discussed with Dr. Luna the orthopedic surgeon. His recommendation was for us to reduce it in the emergency room. Verbal consent over the phone and written consent obtained in the room by the granddaughter
for moderate sedation.
Initial attempt at sedation and reduction performed at 933*time. Sedation performed by emergency room attending. Multiple attempts of reduction were tried and were unsuccessful. Relayed this to orthopedics orthopedics wanted to come in as well.
Upon orthopedic arrival, the patient was resedated by emergency room attending and multiple attempts were made again at reducing the left hip which was unsuccessful. Patient will be admitted to hospital for OR later today
Admission blood work demonstrated anemia of 6.9. Stool is brown and heme-negative. Verbal consent obtained over telephone by son Vick and power of contract attorney. 1 unit of packed red blood cells ordered
ED Attending Note
<Lucas Canada PA-C - Last Filed: 11/06/23 15:09>
-
Portions of this chart may have been created with voice recognition software.� Occasional wrong word or��sound alike� substitutions may have occurred due to the inherent limitations of voice recognition software.
Discharge Plan
Departure
Patient Disposition: Admit
Date of Disposition: 11/06/23
Time of Disposition: 15:08
Admit to: OR
Presentation/result/management discussed w/ accepting MD/DO: Hospitalist
Discharge Problem:
Closed dislocation of left hip, Anemia
Prescriptions:
No Action
acetaminophen [Tylenol] 325 mg Tablet
650 mg PO BID@0800,1930 MDD 3000 mg
acetaminophen [Tylenol] 325 mg Tablet
650 mg PO Q4H MDD 3000 mg PRN (Reason: mild pain/fever>100.4)
carvedilol 3.125 mg Tablet
3.125 mg PO BID@0830,1830
magnesium hydroxide [Milk of Magnesia] 400 mg/5 mL Suspension
30 ml PO HSPRN PRN (Reason: constipation)
bisacodyl 10 mg Suppository
10 mg [place] DAILY PRN (Reason: q 3 days if no BM and MOM/lactulose ineffective)
aspirin 81 mg Tablet,Chewable
81 mg PO DAILY@0830
sertraline 50 mg Tablet
75 mg PO DAILY@0830
enoxaparin 40 mg/0.4 mL Syringe
40 mg SC DAILY Qty: 1 0RF
Rx Instructions:
for 26 more days
Referrals:
Hector Butt DO [Family Provider] -
Interventions
Interventions:
*Risk Screen - Suicide Last Done: 11/06/23 07:55
*General Assessment Last Done: 11/06/23 07:55
*Neglect/Abuse Screening Last Done: 11/06/23 07:55
ED- Fall Risk Assessment Last Done: 11/06/23 07:55
*ED COVID-19 Vaccine History Last Done: 11/06/23 07:55
ED-Musculoskeletal Assessment Last Done: 11/06/23 07:55
Discharge Date and Time
Print Language: MOLDOVAN
[2023-11-06] MEDS: NSS 500 IV (13:33)
[2023-11-06] MEDS: DIPRIVAN 80 MG IV (13:37)
[2023-11-06 13:56] LABS: % Basophils 0.5 % (0-2); % Eosinophils 1.7 % (0-6); % Immature Granulocytes 2.6 % (0-0.5); % Monocytes 14.1 % (1.7-9.3); % Neutrophils 65.1 % (42.2-75.2); Absolute Eosinophils 0.1 10^3/uL (0-0.7); Absolute Immature Granulocytes 0.2 10^3/uL (0-0.05); Absolute Lymphocytes 1.3 10^3/uL (1.2-3.4); Absolute Monocytes 1.1 10^3/uL (0.1-0.6); Absolute Neutrophils 5.1 10^3/uL (1.4-6.5); Mean Corp Hgb Conc. 31.4 g/dL (33.0-37.0); Mean Corpuscular Hgb 30.5 pg (27.0-31.0); Mean Corpuscular Volume 97.3 fL (81.0-99.0); Mean Platelet Volume 10.2 fL (7.4-10.4); Nucleated Red Blood Cells % 0 %; Platelet Count 372 10^3/uL (130-400); Red Blood Cell Count 2.26 10^6/uL (4.20-5.40); Red Cell Dist. Width 14.4 % (11.5-14.5); White Blood Cell Count 7.8 10^3/uL (4.8-10.8)
[2023-11-06 13:59] LABS: Hemoglobin 6.9 g/dL (12.0-16.0)
[2023-11-06 14:21] LABS: ALT (SGPT) 22 U/L (0-35); AST (SGOT) 32 U/L (14-36); Albumin 2.9 g/dl (3.5-5.0); Alkaline Phosphatase 73 U/L (38-126); Blood Urea Nitrogen 26 mg/dl (7-17); Calcium 8.6 mg/dl (8.4-10.2); Carbon Dioxide 27 mmol/L (22-30); Chloride 106 mmol/L (98-107); Estimated Creatinine Clearance 58 ml/min; Glucose 104 mg/dl (70-99); Potassium 4.2 mmol/L (3.5-5.1); Sodium 138 mmol/L (135-145); Total Protein 5.6 g/dl (6.3-8.2); eGFR > 60.00
--- NOTE | 2023-11-06 15:46 | W.PN.UPDATE ---
Update Note
Progress Note Update
I saw and examined the patient.
The KAVITA Cavazos's note was reviewed and I agree with the note.
Comment: 88 y/o F, hx of HTN and dementia, recent L hip fracture s/p repair presents to ER for concern of L hip dislocation. SNF staff noted a bulge at her L hip and leg shortening, an Xray was completed there and in the ER confirming
dislocation. In ER several attempts at reduction were unsuccessful by ER and ortho. Patient was noted to have Anemia of 6.9, 1 unit ordered. patient planned for OR this evening for operative reduction.
Physical Exam
General: Comfortable and Conversant
HEENT: Anicteric and Moist mucous membranes
Respiratory: Clear and Non Labored Respirations
Cardiac: S1/S2 and Regular Rhythm
GI: Soft and Non Tender
Rectal: Hem Negative
Musculoskeletal: No Clubbing, No Cyanosis and Other (LLE visibly shorter than RLE)
Neuro: Awake and Alert; No Oriented
Psych: Calm
Assessment:
L hip dislocation
Recent L hip fracture s/p left hip hemiarthroplasty 10/19
- X-ray: Complete superior dislocation of the acetabular component of the prosthetic from the acetabulum.
- s/p reduction attempts by ER and Ortho in the ER department, without success
- for OR Today for operative reduction with [facility]
- post-op PT/OT
- pain control - standing Tramadol + prns
Anemia, subacute from recent blood loss from prior surgery 3 weeks ago
- add on anemia workup and heme test stools
- 1 unit PRBC ordered
- follow Hb
Essential Hypertension
- continue Coreg
Anxiety/dementia
- monitor for behavioral disturbances
- sertraline continued
Hx of DYLAN
- pursue outpatient sleep study
DVT ppx: per Ortho post-op
Code: DNR
--- NOTE | 2023-11-06 16:20 | HPS.HSE ---
Addendum entered and electronically signed by Nomi Momin MD 11/06/23 16:41:
I saw and examined the patient.
The KAVITA Cavazos's note was reviewed and I agree with the note.
Comment: 88 y/o F, hx of HTN and dementia, recent L hip fracture s/p repair presents to ER for concern of L hip dislocation. SNF staff noted a bulge at her L hip and leg shortening, an Xray was completed there and in the ER confirming
dislocation. In ER several attempts at reduction were unsuccessful by ER and ortho. Patient was noted to have Anemia of 6.9, 1 unit ordered. patient planned for OR this evening for operative reduction.
Physical Exam
General: Comfortable and Conversant
HEENT: Anicteric and Moist mucous membranes
Respiratory: Clear and Non Labored Respirations
Cardiac: S1/S2 and Regular Rhythm
GI: Soft and Non Tender
Rectal: Hem Negative
Musculoskeletal: No Clubbing, No Cyanosis and Other (LLE visibly shorter than RLE)
Neuro: Awake and Alert; No Oriented
Psych: Calm
Assessment:
L hip dislocation
Recent L hip fracture s/p left hip hemiarthroplasty 10/19
- X-ray: Complete superior dislocation of the acetabular component of the prosthetic from the acetabulum.
- s/p reduction attempts by ER and Ortho in the ER department, without success
- for OR Today for operative reduction with [facility]
- post-op PT/OT
- pain control - standing Tramadol + prns
Anemia, subacute from recent blood loss from prior surgery 3 weeks ago
- add on anemia workup and heme test stools
- 1 unit PRBC ordered
- follow Hb
Essential Hypertension
- continue Coreg
Anxiety/dementia
- monitor for behavioral disturbances
- sertraline continued
Hx of DYLAN
- pursue outpatient sleep study
DVT ppx: per Ortho post-op
Code: DNR
Addendum entered and electronically signed by Nomi Momin MD 11/06/23 16:33:
see my update note for addendum
Original Note:
Family Physician
-
Family Physician: Hector Butt DO
Chief Complaint
-
Hip Dislocation
History of Present Illness
This is an 88 year old female with PMH of hypertension and dementia who presents for hip dislocation. Patient is a poor historian due to dementia.
Patient had left hip hemiarthroplasty on 10/20/23. Staff at nursing facility noted a bulge at the left hip yesterday prompting them to order an x-ray which revealed a possible dislocation and she was sent to the emergency department for evaluation.
Attempts to reduce the hip in the emergency department were unsuccessful and patient will require reduction in the operating room.
Medical History
Past Medical History
Past Medical History: Reports Other
Additional Past Medical History:
Hyperlipidemia
Hypertension
Anxiety
Dementia
GERD
Past Surgical History: Reports Other
Additional Past Surgical History:
Cervical laminectomy
Total abdominal hysterectomy
Appendectomy
Bilateral knee replacement
Cataract extraction
Social History
Unable to obtain full social history at this time due to: Dementia
Living: Group Home
Family History
Family History: Not pertinent
Allergies / Home Medications
Allergies reflects when Allergies were last updated in Indexing.
Home Medications with original date entered in Indexing
Allergy/Medication List:
Allergies
Allergy/AdvReac Type Severity Reaction Status Date / Time
No Known Allergies Allergy Unverified 11/06/23 07:46
Home Medications
acetaminophen 325 mg tablet (Tylenol) 650 mg PO BID@0800,1930 Pain 10/18/23
acetaminophen 325 mg tablet (Tylenol) 650 mg PO BIDPRN PRN mild pain/fever>100.4 10/18/23
aspirin 81 mg chewable tablet 81 mg PO DAILY Blood Clot Prevention/Tx 10/18/23
bisacodyl 10 mg rectal suppository 10 mg UT DAILYPRN PRN q 3 days if no BM and MOM/lactulose ineffective 10/18/23
carvedilol 3.125 mg tablet 3.125 mg PO BID@0830,1830 Heart Disease/Condition 10/18/23
magnesium hydroxide 400 mg/5 mL oral suspension (Milk of Magnesia) 30 ml PO HSPRN PRN constipation 10/18/23
sertraline 50 mg tablet 75 mg PO DAILY Mental Health/Anxiety 10/18/23
enoxaparin 40 mg/0.4 mL subcutaneous syringe 40 mg (0.4 mL) SC DAILY #1 mL 10/22/23
tramadol 50 mg tablet 25 mg PO BID 11/06/23
Review of Systems
-
Unable to obtain full review of systems at this time due to: Dementia
Physical Exam
Vital Signs
Vital Signs
Temp Pulse Resp BP Pulse Ox
98.1 F 84 16 108/70 97
11/06/23 13:36 11/06/23 13:36 11/06/23 13:36 11/06/23 13:36 11/06/23 13:36
Physical Exam
General: Comfortable and Conversant
HEENT: Anicteric and Moist mucous membranes
Respiratory: Clear and Non Labored Respirations
Cardiac: S1/S2 and Regular Rhythm
GI: Soft and Non Tender
Rectal: Hem Negative
Musculoskeletal: No Clubbing, No Cyanosis and Other (LLE visibly shorter than RLE)
Neuro: Awake and Alert; No Oriented
Psych: Calm
Laboratory Results
-
11/06/23 13:33
11/06/23 13:33
Laboratory Results
Total Bilirubin 1.0 mg/dl (0.2-1.3) 11/06/23 13:33
AST 32 U/L (14-36) 11/06/23 13:33
ALT 22 U/L (0-35) 11/06/23 13:33
Alkaline Phosphatase 73 U/L (38-126) 11/06/23 13:33
Data Reviewed
-
Diagnostic Radiology: Report Reviewed by me
Lab Data: Labs Reviewed by me
Impression/Plan
-
Left Hip Dislocation
-Consult Ortho
-NPO for reduction in OR this evening
Anemia, likely acute post-op blood loss
-Stools heme-negative in ED - Continue to test stools
-Check iron studies, vitamin b12 and folic acid
-Hold Lovenox
Essential Hypertension
-Continue Coreg with hold parameters
Dementia
-Monitor for mood/behavior changes during hospitalization
Anxiety
-Continue Zoloft
DVT proph: SCDs
Code Status: DNR
[2023-11-06 16:31] LABS: Iron 49 ug/dl (37-170)
[2023-11-06 16:40] LABS: Percent Saturation 19 % (20-50); Total Iron Binding Capacity 256 ug/dl (265-497)
[2023-11-06 17:48] LABS: Folate 6.3 ng/ml (2.76-20); Vitamin B12 335 pg/ml (239-931)
--- NOTE | 2023-11-06 18:48 | OR.RPT ---
Operative Report
Operative Report
Anesthesia Type:
Sedation
Operative Indications:
Dislocated left hip hemiarthroplasty
Operative Findings :
Posterior superior dislocation left hip hemiarthroplasty
Complications:
None
Implants:
None
Procedure and Technique:
Closed reduction left hip hemiarthroplasty under heavy sedation requiring monitoring of airway in the operating room
INDICATIONS FOR PROCEDURE:
88-year-old female dementia roughly 2 and half weeks status post left hip hemiarthroplasty for displaced left femoral neck fracture presented to the emergency department after her longterm noticed deformity to her left leg and difficulty bearing
weight. She was subsequently diagnosed with a dislocated left hip hemiarthroplasty. Closed reduction was performed and attempted in the emergency department was unsuccessful. She was admitted to the medical service for anemia and decision was
made to proceed to the operating room for close reduction. Given patient's significant dementia, this was discussed with her son who is her medical power of decorator hand. We discussed risks benefits and alternatives. We discussed the usual expected
perioperative and postoperative course. After discussion verbal consent was obtained over the telephone
OPERATIVE PROCEDURE:
Patient was seen identified in the preoperative holding area. Operative extremity was marked. She is taken the operating room placed supine on a radiolucent OR table. Anesthesia was administered by the anesthesia providers consisting of Precedex
and propofol. She did require O2 mask as well as close monitoring of her airway. Timeout was performed again identifying the correct operative extremity. Prereduction fluoroscopic images confirmed posterior superior dislocation of left hip
hemiarthroplasty. Gentle reduction maneuver was performed consisting of axial inline traction slight adduction and internal ex rotation. There was a palpable clunk and fluoroscopic imaging confirmed appropriate reduction. Anesthesia was reversed
and patient was taken to the PACU in stable condition. She was placed in an abduction pillow. Postoperative plans will include weightbearing to patient's tolerance. Continue Lovenox for DVT prophylaxis. Continue with posterior hip precautions to
include abduction pillow while in bed and avoidance of flexion and adduction. Plan to see patient back in the office in 1 to 2 weeks for repeat evaluation.
Disposition:
PACU stable condition
--- NOTE | 2023-11-06 19:08 | CON.ORTHO ---
Consultation
-
Date/Time Consultation Requested: 945 AM 11/06/2023
Date/Time Consultation Performed: 1230 PM 11/06/2023
Requesting Provider: ED
Performing Provider: Cheryl
Reason for Consultation: Left hip prosthetic dislocation
Consultation - Orthopedics
History
HPI: 88-year-old female history of dementia about 2 and half weeks status post left hip hemiarthroplasty for displaced left femoral neck fracture presented to the emergency department secondary to left hip deformity and difficulty bearing weight.
She was subsequently diagnosed with a left prosthetic hip dislocation. She underwent attempted closed reduction in the emergency department that was unsuccessful. No history was able to be obtained from the patient given her significant dementia.
Per reports emergency department providers, they did speak with nursing staff at her nursing facility but denied any trauma or falls.
Allergies / Home Medications
Past medical history: Dementia, coronary artery disease, hypertension
Past surgical history: Left hip hemiarthroplasty
Social history: Lives at group home, non-smoker
Family history: Not pertinent
Allergy/AdvReac Type Severity Reaction Status Date / Time
No Known Allergies Allergy Unverified 11/06/23 07:46
�Medication �Instructions �Recorded
acetaminophen 325 mg tablet 650 mg PO BID@0800,1930 Pain 10/18/23
(Tylenol)
acetaminophen 325 mg tablet 650 mg PO BIDPRN PRN mild 10/18/23
(Tylenol) pain/fever>100.4
aspirin 81 mg chewable tablet 81 mg PO DAILY Blood Clot 10/18/23
Prevention/Tx
bisacodyl 10 mg rectal suppository 10 mg NE DAILYPRN PRN q 3 days if 10/18/23
no BM and MOM/lactulose ineffective
carvedilol 3.125 mg tablet 3.125 mg PO BID@0830,1830 Heart 10/18/23
Disease/Condition
magnesium hydroxide 400 mg/5 mL 30 ml PO HSPRN PRN constipation 10/18/23
oral suspension (Milk of Magnesia)
sertraline 50 mg tablet 75 mg PO DAILY Mental 10/18/23
Health/Anxiety
enoxaparin 40 mg/0.4 mL 40 mg (0.4 mL) SC DAILY #1 mL 10/22/23
subcutaneous syringe
tramadol 50 mg tablet 25 mg PO BID 11/06/23
Vital Signs / Lab Results
Temp Pulse Resp BP Pulse Ox
98.1 F 84 24 124/50 99
11/06/23 13:36 11/06/23 18:45 11/06/23 18:45 11/06/23 18:45 11/06/23 18:45
11/06/23 13:33
11/06/23 13:33
10 point review systems reviewed and negative unless otherwise stated
General: Pleasantly demented, no acute distress at rest
Musculoskeletal left lower extremity
Surgical incision posterior lateral hip well-healed with mild scabbing distally, no active drainage
Extremity shortened and internally rotated
There is visible grimace and audible pain with motion to the left hip
Unable to comply with detailed motor or sensory examination
Spontaneously moving toes
Brisk cap refill
Diagnostic studies
X-rays left hip reviewed by myself did not show left hip hemiarthroplasty dislocation
Procedure: Under propofol sedation the emergency department, attempted closed reduction was performed with inline axial traction, slight adduction and internal/external rotation. This was unsuccessful.
Assessment / Plan
88-year-old female history dementia with left hip hemiarthroplasty dislocation. There is no reported trauma although patient is unable to provide any meaningful history. Given the failure of closed reduction in the emergency department, would
recommend close reduction in the operating room. Given patient's anemia, plan to have her admitted to the medical service. Will plan for close reduction attempt later today.
Nonweightbearing left lower extremity
N.p.o.
Pain control
Medical management per primary team
Plan: 2 OR today for attempted closed reduction of left hip hemiarthroplasty prosthetic dislocation
[2023-11-06] MEDS: MORPHINE SULFATE 1 MG IV ×2 (19:26→19:47)
[2023-11-06] MEDS: NSS 1000 IV (20:39)
[2023-11-06] MEDS: COREG PO (21:21)
[2023-11-06] MEDS: TYLENOL 650 MG PO (21:22)
[2023-11-06] MEDS: ULTRAM 25 MG PO (21:22)
[2023-11-06] MEDS: COLACE 100 MG PO (21:22)
--- NOTE | 2023-11-06 21:34 | SUR.PHASEI ---
patient in pacu post op closed hip reduction, confused, rambling words, cooperative with encouragement. vss, packed cells ordered at 1330 - started and infused in pacu, tolerated well however IV positional and needed to hold patient's limb during
infusion. incontinent of small amount of stool - skin care given , sequentials placed, medicated x2 with morphine for probable pain and slept at short intervals. transfered to [facility] and moved to bed, skin care, bed alarm and call bed to patient
[2023-11-07] VITALS (7 sets, daily range): BP systolic 94–126; BP diastolic 53–78; PULSE 84; O2SAT 100
--- NOTE | 2023-11-07 01:57 | PTCARENOTE ---
Pt. transferred from PACU to [address]. Pt. AAOx1, confused, garbled speech. Bed alarm placed. Aquacel dressing CDI to L hip. Neurovascular checks intact. Admission questions completed with little information provided. Call garcia within reach.
Plan of care on going.
[2023-11-07] MEDS: ZOLOFT 75 MG PO (07:59)
[2023-11-07] MEDS: COLACE 100 MG PO ×2 (08:00→19:57)
[2023-11-07] MEDS: LOW STRENGTH ASPIRIN 81 MG PO (08:00)
[2023-11-07] MEDS: LOVENOX 40 MG SC (08:00)
[2023-11-07] MEDS: COREG PO (08:01)
[2023-11-07] MEDS: ULTRAM 25 MG PO ×2 (08:02→19:57)
[2023-11-07] MEDS: TYLENOL 650 MG PO ×2 (08:02→19:57)
[2023-11-07 08:34] LABS: Hematocrit 26.3 % (37.0-47.0); Mean Corp Hgb Conc. 31.6 g/dL (33.0-37.0); Mean Corpuscular Hgb 30.9 pg (27.0-31.0); Mean Corpuscular Volume 97.8 fL (81.0-99.0); Mean Platelet Volume 10.3 fL (7.4-10.4); Platelet Count 327 10^3/uL (130-400); Red Blood Cell Count 2.69 10^6/uL (4.20-5.40); Red Cell Dist. Width 15.7 % (11.5-14.5); White Blood Cell Count 7.6 10^3/uL (4.8-10.8)
[2023-11-07 09:01] LABS: Blood Urea Nitrogen 22 mg/dl (7-17); Calcium 8.1 mg/dl (8.4-10.2); Carbon Dioxide 26 mmol/L (22-30); Chloride 106 mmol/L (98-107); Estimated Creatinine Clearance 58 ml/min; Glucose 93 mg/dl (70-99); Hemoglobin 8.3 g/dL (12.0-16.0); Potassium 4.4 mmol/L (3.5-5.1); Sodium 136 mmol/L (135-145); eGFR > 60.00
--- NOTE | 2023-11-07 10:24 | W.PN.HOSP.TC ---
Today's Communication/Plan
-
repeat AM labs
PT/OT
Assessment / Plan
Assessment / Plan
Assessment:
L hip dislocation
Recent L hip fracture s/p left hip hemiarthroplasty 10/19
- X-ray: Complete superior dislocation of the acetabular component of the prosthetic from the acetabulum.
- s/p reduction attempts by ER and Ortho in the ER department, without success
- s/p operative reduction 11/[address] Luna
- post-op PT/OT
- pain control - standing Tramadol + prns
Anemia, subacute from recent blood loss from prior surgery 3 weeks ago
Anemia of chronic disease at baseline
- hb 8.3 s/p 1 unit PRBC
- follow Hb
Essential Hypertension
- continue Coreg
Anxiety/dementia
- monitor for behavioral disturbances
- sertraline continued
Hx of DYLAN
- pursue outpatient sleep study
DVT ppx: per Ortho post-op
Code: DNR
Anticipated Discharge: 24 - 48 hours
Subjective/Interval History
-
Date of Service: November 07, 2023
denies any new complaints at present
Objective Data
-
Labs:
Laboratory Results
11/07/23
07:14
WBC 7.6
Hgb 8.3 L D
Hct 26.3 L
Plt Count 327
Sodium 136
Potassium 4.4
Chloride 106
Carbon Dioxide 26
BUN 22 H
Creatinine 0.7
Glucose 93
Calcium 8.1 L
Vital Signs:
Vital Signs
Temp Pulse Resp BP Pulse Ox
97.6 F 78 16 101/54 100
11/07/23 07:00 11/07/23 07:00 11/07/23 07:00 11/07/23 07:00 11/07/23 07:00
I&O
11/06/23 11/07/23 11/08/23
06:59 06:59 06:59
Intake Total 520 / 520
Output Total 0 / 0
Balance 520 / 520
Physical Exam
-
General: No Apparent Distress
HEENT: Normocephalic and Atraumatic
Respiratory: Negative Wheezes
Cardiac: Regular Rhythm
GI: Soft
Genito-urinary: No Costovertebral Tender
Neuro: AO x 3
Psych: Calm
Data Reviewed
-
Total Time Spent with Patient (in minutes): 42
Labs: Labs Reviewed by me
--- NOTE | 2023-11-07 10:26 | PTCARENOTE ---
pt weaned to RA 96%
[2023-11-07] MEDS: NSS IV (13:10)
[2023-11-07] MEDS: COREG 3.125 MG PO (18:11)
--- NOTE | 2023-11-07 19:59 | W.PN.ORTHO ---
Today's Communication / Plan
-
88-year-old female 1 day status post closed reduction left hip hemiarthroplasty dislocation in the operating room. Hip appears to be reduced on examination this evening
Weightbearing as tolerated left lower extremity
Posterior hip precautions. Abduction pillow while in bed
Pain control
PT OT
Continue DVT prophylaxis as previously prescribed
Medical management per primary team
Follow-up outpatient 1 to 2 weeks repeat evaluation repeat radiographs left hip
Subjective
.
.:
Patient appears to be resting comfortably at this evening. She is unable to provide any meaningful history secondary to mental status. She is nonsensically conversant with myself.
Vital Signs and Labs
.
Vital Signs and Labs:
Lab Results
11/07/23 07:14
11/07/23 07:14
Temp Pulse Resp BP Pulse Ox
98.8 F 100 18 136/77 97
11/07/23 15:00 11/07/23 18:11 11/07/23 15:00 11/07/23 18:11 11/07/23 15:00
Physical Exam
-
Musculoskeletal left lower extremity
Equal leg lengths on examination without rotational deformity
Unable to comply with detailed motor or sensory examination
Spontaneously moving toes and ankle
Distal extremity warm and pink
[2023-11-08] VITALS (14 sets, daily range): BP systolic 104–136; BP diastolic 51–83; PULSE 84; O2SAT 99
[2023-11-08 07:08] LABS: Hemoglobin 8.1 g/dL (12.0-16.0); Mean Corp Hgb Conc. 32.4 g/dL (33.0-37.0); Mean Corpuscular Hgb 30.9 pg (27.0-31.0); Mean Corpuscular Volume 95.4 fL (81.0-99.0); Mean Platelet Volume 10.4 fL (7.4-10.4); Platelet Count 328 10^3/uL (130-400); Red Blood Cell Count 2.62 10^6/uL (4.20-5.40); White Blood Cell Count 7.9 10^3/uL (4.8-10.8)
[2023-11-08 07:33] LABS: Blood Urea Nitrogen 25 mg/dl (7-17); Calcium 8.4 mg/dl (8.4-10.2); Carbon Dioxide 24 mmol/L (22-30); Chloride 105 mmol/L (98-107); Estimated Creatinine Clearance 58 ml/min; Glucose 91 mg/dl (70-99); Potassium 4.1 mmol/L (3.5-5.1); Sodium 135 mmol/L (135-145); eGFR > 60.00
[2023-11-08] MEDS: COREG 3.125 MG PO (08:05)
[2023-11-08] MEDS: COLACE 100 MG PO ×2 (08:06→21:36)
[2023-11-08] MEDS: TYLENOL 650 MG PO ×2 (08:06→18:12)
[2023-11-08] MEDS: LOW STRENGTH ASPIRIN 81 MG PO (08:06)
[2023-11-08] MEDS: ULTRAM 25 MG PO ×2 (08:06→21:37)
[2023-11-08] MEDS: ZOLOFT 75 MG PO (08:06)
[2023-11-08] MEDS: LOVENOX 40 MG SC (08:07)
--- NOTE | 2023-11-08 13:56 | CM ---
Spoke with attending who stated that patient is medically stable for discharge. Placed a call to Syed in admissions at [facility] who stated that they would have a bed available for tomorrow. Attending updated no auth needed.
Plan: Case management will continue to follow and assist with discharge planning. NM when patient is cleared.
--- NOTE | 2023-11-08 14:01 | W.PN.HOSP.TC ---
Today's Communication/Plan
-
return trip to OR for reduction of new dislocation
Assessment / Plan
Assessment / Plan
Assessment:
L hip dislocation
Recent L hip fracture s/p left hip hemiarthroplasty 10/19
- X-ray: Complete superior dislocation of the acetabular component of the prosthetic from the acetabulum.
- s/p reduction attempts by ER and Ortho in the ER department, without success
- s/p operative reduction 11/[address] Luna
- recurrent fall 11/07 with repeat Xray: with superior dislocation of the component relative to the acetabulum. No osseous fracture identified. Head CT negative.
- for repeat OR reduction today; NPO starting now
- repeat PT/OT tomorrow
- pain control - standing Tramadol + prns
Anemia, subacute from recent blood loss from prior surgery 3 weeks ago
Anemia of chronic disease at baseline
- hb 8.1 s/p 1 unit PRBC
- follow Hb
Essential Hypertension
- continue Coreg
Anxiety/dementia
- monitor for behavioral disturbances
- sertraline continued
Hx of DYLAN
- pursue outpatient sleep study
DVT ppx: per Ortho post-op
Code: DNR
Anticipated Discharge: 24 - 48 hours
Subjective/Interval History
-
Date of Service: November 08, 2023
notified by RN that patients chair tipped over and she fell into left side, hitting head against radiator
stat CT head negative
Objective Data
-
Labs:
Laboratory Results
11/08/23
05:59
WBC 7.9
Hgb 8.1 L
Hct 25.0 L
Plt Count 328
Sodium 135
Potassium 4.1
Chloride 105
Carbon Dioxide 24
BUN 25 H
Creatinine 0.7
Glucose 91
Calcium 8.4
Vital Signs:
Vital Signs
Temp Pulse Resp BP Pulse Ox
97.2 F 88 16 121/67 97
11/08/23 12:05 11/08/23 12:05 11/08/23 12:05 11/08/23 12:05 11/08/23 12:05
I&O
11/07/23 11/08/23 11/09/23
06:59 06:59 06:59
Intake Total 520 / 520 1106 / 1106
Output Total 0 / 0
Balance 520 / 520 1106 / 1106
Physical Exam
-
General: No Apparent Distress
HEENT: Normocephalic and Atraumatic
Respiratory: Negative Wheezes
Cardiac: Regular Rhythm
GI: Soft
Genito-urinary: No Costovertebral Tender
Psych: Calm and Apparent Dementia
Data Reviewed
-
Total Time Spent with Patient (in minutes): 41
Labs: Labs Reviewed by me
[2023-11-08] MEDS: COREG PO (18:08)
--- NOTE | 2023-11-08 19:30 | PTCARENOTE ---
During nightshift report OR called to receive report on patient, Dayshift NAHUM Cheng gave telephone report, patient brought to OR in bed by two satellite tv installer @19:25.
--- NOTE | 2023-11-08 20:07 | OR.RPT ---
Operative Report
Operative Report
Anesthesia Type:
Sedation requiring airway monitoring
Operative Indications:
Left hip hemiarthroplasty dislocation
Operative Findings :
Same
Complications:
None
Implants:
None
Procedure and Technique:
Left hip prosthetic hip dislocation closed reduction
INDICATIONS FOR PROCEDURE:
88-year-old female history of dementia status post recent left hip hemiarthroplasty for displaced left femoral neck fracture with recent dislocation status post closed reduction. Patient reportedly sustained a fall while hospitalized and
subsequently redislocated her left hip. Discussed this at length with her son to him who is her medical power of customer operations representative. We discussed treatment options. Was my recommendation to proceed with closed reduction in the operating room. Discussed
risks benefits and alternatives. Discussed the usual expected perioperative postoperative course. After discussion written informed consent was obtained
OPERATIVE PROCEDURE:
Patient was seen identified in the preoperative holding area. She was taken to the operating room placed supine a radiolucent table. Sedation was administered by the anesthesia providers. After adequate relaxation, closed reduction maneuver was
performed utilizing inline traction slight adduction and internal/external rotation. There was a palpable clunk. Intraoperative orthogonal fluoroscopic imaging confirmed appropriate reduction. Hip was stressed under fluoroscopy. There was some
instability with extreme flexion and adduction but was otherwise found to be stable. Sedation was reversed and patient was placed in an abduction pillow and taken to PACU in stable condition. Postoperative plans will include weightbearing the
patient's tolerance operative extremity. Will recommend posterior hip precautions to include abduction pillow while in bed. Given persistent instability, will recommend knee immobilizer when out of bed. Will plan to see patient back in 1 to 2
weeks for repeat evaluation. This was discussed at length with her son after the procedure.
Disposition:
PACU stable condition
--- NOTE | 2023-11-08 21:00 | SUR.PHASEI ---
received sedate, awake now and cooperative, nods to questions, denies pain, vss, small reddened area noted right forehead and bump. nods that it is sore to touch, back to sleep..
--- NOTE | 2023-11-08 21:25 | PTCARENOTE ---
Patient returned from PACU @21:25, abductor pillow in place, VSS, bed alarm in place and activated, Med Sitter active, patient resting comfortably at this time.
[2023-11-08] MEDS: ROXICODONE 10 MG PO (23:11)
[2023-11-09] VITALS (7 sets, daily range): BP systolic 96–150; BP diastolic 55–80; PULSE 95; O2SAT 96
[2023-11-09] MEDS: ROXICODONE 10 MG PO (05:39)
--- NOTE | 2023-11-09 06:57 | W.PN.ORTHO ---
Today's Communication / Plan
-
88-year-old female dementia postop day 1 status post most recent closed reduction left hip hemiarthroplasty dislocation. She remains located this morning on examination
Weightbearing as tolerated left lower extremity
PT OT: Posterior hip precautions. Given patient's persistent instability, would recommend knee immobilizer when out of bed in a chair. Certainly if knee immobilizer is a hindrance to her ambulatory function, would not want to cause a fall with a
knee immobilizer but hopefully adding in knee immobilizer while seated in a chair will help prevent any further instability episodes.
Abduction pillow while in bed
DVT prophylaxis
Medical management per primary team
Pain control
Plan to follow-up outpatient 1 to 2 weeks for repeat evaluation
Subjective
.
.:
Patient sleeping comfortably this morning. No documented overnight events
Vital Signs and Labs
.
Vital Signs and Labs:
Temp Pulse Resp BP Pulse Ox
98 F 78 16 135/67 97
11/09/23 03:38 11/09/23 03:38 11/09/23 03:38 11/09/23 03:38 11/09/23 03:38
Physical Exam
-
Musculoskeletal left lower extremity
Abduction pillow in place
Brisk cap refill
Legs equal length without any rotational deformity noted
[2023-11-09 08:17] LABS: Hematocrit 27.4 % (37.0-47.0); Hemoglobin 8.9 g/dL (12.0-16.0); Mean Corp Hgb Conc. 32.5 g/dL (33.0-37.0); Mean Corpuscular Hgb 31.3 pg (27.0-31.0); Mean Corpuscular Volume 96.5 fL (81.0-99.0); Mean Platelet Volume 10.2 fL (7.4-10.4); Platelet Count 287 10^3/uL (130-400); Red Blood Cell Count 2.84 10^6/uL (4.20-5.40); Red Cell Dist. Width 14.6 % (11.5-14.5); White Blood Cell Count 8.7 10^3/uL (4.8-10.8)
[2023-11-09] MEDS: COLACE PO (08:18)
[2023-11-09] MEDS: LOVENOX 40 MG SC (08:18)
[2023-11-09] MEDS: LOW STRENGTH ASPIRIN 81 MG PO (08:19)
[2023-11-09] MEDS: ULTRAM 25 MG PO ×2 (08:19→20:01)
[2023-11-09] MEDS: TYLENOL 650 MG PO ×2 (08:22→20:01)
[2023-11-09] MEDS: ZOLOFT 75 MG PO (08:22)
[2023-11-09] MEDS: COREG PO ×2 (08:23→18:12)
[2023-11-09 09:12] LABS: Blood Urea Nitrogen 20 mg/dl (7-17); Calcium 8.5 mg/dl (8.4-10.2); Carbon Dioxide 26 mmol/L (22-30); Chloride 105 mmol/L (98-107); Estimated Creatinine Clearance 58 ml/min; Glucose 104 mg/dl (70-99); Potassium 4.3 mmol/L (3.5-5.1); Sodium 136 mmol/L (135-145); eGFR > 60.00
--- NOTE | 2023-11-09 11:41 | W.PN.HOSP.TC ---
Today's Communication/Plan
-
PT/OT
pain control
DC planning to SNF in 24 hours
Assessment / Plan
Assessment / Plan
Assessment:
L hip dislocation
Recent L hip fracture s/p left hip hemiarthroplasty 10/19
- X-ray: Complete superior dislocation of the acetabular component of the prosthetic from the acetabulum.
- s/p reduction attempts by ER and Ortho in the ER department, without success
- s/p operative reduction 11/[address] Luna
- recurrent fall 11/07 with repeat Xray: with superior dislocation of the component relative to the acetabulum. No osseous fracture identified. Head CT negative.
- s/p 2nd operative reduction 11/[address] Luna
- repeat PT/OT today
- pain control - standing Tramadol + prns
Anemia, subacute from recent blood loss from prior surgery 3 weeks ago
Anemia of chronic disease at baseline
- hb 8.9 s/p 1 unit PRBC
- follow Hb
Essential Hypertension
- continue Coreg
Anxiety/dementia
- monitor for behavioral disturbances
- sertraline continued
Hx of DYLAN
- pursue outpatient sleep study
DVT ppx: per Ortho post-op
Code: DNR
Anticipated Discharge: > 48 hours
Subjective/Interval History
-
Date of Service: November 09, 2023
s/p reduction last evening
denies any new complaints
Objective Data
-
Labs:
Laboratory Results
11/09/23
07:56
WBC 8.7
Hgb 8.9 L
Hct 27.4 L
Plt Count 287
Sodium 136
Potassium 4.3
Chloride 105
Carbon Dioxide 26
BUN 20 H
Creatinine 0.7
Glucose 104 H
Calcium 8.5
Vital Signs:
Vital Signs
Temp Pulse Resp BP Pulse Ox
98.5 F 95 18 109/58 96
11/09/23 11:20 11/09/23 11:20 11/09/23 11:20 11/09/23 11:20 11/09/23 11:20
I&O
11/08/23 11/09/23 11/10/23
06:59 06:59 06:59
Intake Total 1106 / 1106 220 / 220
Output Total 0 / 0
Balance 1106 / 1106 220 / 220
Physical Exam
-
General: No Apparent Distress
HEENT: Normocephalic and Atraumatic
Respiratory: Negative Wheezes or Rales
Cardiac: Regular Rhythm and S1/S2
GI: Soft and Nontender
Neuro: Awake
Psych: Apparent Dementia
Data Reviewed
-
Total Time Spent with Patient (in minutes): 41
Labs: Labs Reviewed by me
[2023-11-09] MEDS: ROXICODONE 5 MG PO (15:14)
[2023-11-09] MEDS: COLACE 100 MG PO (20:01)
[2023-11-10 07:10] VITALS: BP 118/62
[2023-11-10] MEDS: LOVENOX 40 MG SC (07:38)
[2023-11-10] MEDS: LOW STRENGTH ASPIRIN 81 MG PO (07:39)
[2023-11-10] MEDS: TYLENOL 650 MG PO (07:39)
[2023-11-10] MEDS: ZOLOFT 75 MG PO (07:39)
[2023-11-10] MEDS: COLACE 100 MG PO (07:40)
[2023-11-10] MEDS: ULTRAM 25 MG PO (07:40)
[2023-11-10] MEDS: COREG PO (07:42)
[2023-11-10 08:41] LABS: Hematocrit 27.3 % (37.0-47.0); Mean Corpuscular Hgb 30.8 pg (27.0-31.0); Mean Corpuscular Volume 93.5 fL (81.0-99.0); Mean Platelet Volume 10.4 fL (7.4-10.4); Platelet Count 297 10^3/uL (130-400); Red Blood Cell Count 2.92 10^6/uL (4.20-5.40); Red Cell Dist. Width 14.6 % (11.5-14.5)
[2023-11-10 09:01] LABS: Blood Urea Nitrogen 19 mg/dl (7-17); Calcium 8.4 mg/dl (8.4-10.2); Carbon Dioxide 27 mmol/L (22-30); Chloride 104 mmol/L (98-107); Estimated Creatinine Clearance 58 ml/min; Glucose 106 mg/dl (70-99); Potassium 4.1 mmol/L (3.5-5.1); Sodium 137 mmol/L (135-145); eGFR > 60.00
[2023-11-10] MEDS: ROXICODONE 5 MG PO (09:39)
--- NOTE | 2023-11-10 10:34 | PTCARENOTE ---
pt OOB to chair with 3 staff 6/8 with complete assist, pt unable to follow most commands, not moving feet. Immobilizer placed to left knee. It took 3 staff to slide pt back into bed. pt unable to follow commands.
--- NOTE | 2023-11-10 11:37 | W.PN.HOSP.TC ---
Today's Communication/Plan
-
discharge back to [facility]
Assessment / Plan
Assessment / Plan
Assessment:
L hip dislocation
Recent L hip fracture s/p left hip hemiarthroplasty 10/19
- X-ray: Complete superior dislocation of the acetabular component of the prosthetic from the acetabulum.
- s/p reduction attempts by ER and Ortho in the ER department, without success
- s/p operative reduction 11/[address] Luna
- recurrent fall 11/07 with repeat Xray: with superior dislocation of the component relative to the acetabulum. No osseous fracture identified. Head CT negative.
- s/p 2nd operative reduction 11/[address] Luna
- pain control - standing Tramadol + prns
- OP ortho f/u with Dr. Luna in 1-2 weeks
Anemia, subacute from recent blood loss from prior surgery 3 weeks ago
Anemia of chronic disease at baseline
- hb 9.0 s/p 1 unit PRBC
- follow Hb
Essential Hypertension
- continue Coreg
Anxiety/dementia
- monitor for behavioral disturbances
- sertraline continued
Hx of DYLAN
- pursue outpatient sleep study
DVT ppx: per Ortho post-op
Code: DNR
More than 30 minutes spent in discharge including
Final examination of the patient
Summarizing hospital stay
Instructions for continuing care to all relevant caregivers
Preparation of discharge records, prescriptions, and referral forms
Total time spent (in minutes): 41
Anticipated Discharge: Today
Subjective/Interval History
-
Date of Service: November 10, 2023
no new complaints
worked with PT/OT yesterday
Hb stable
Objective Data
-
Labs:
Laboratory Results
11/10/23
07:48
WBC 8.0
Hgb 9.0 L
Hct 27.3 L
Plt Count 297
Sodium 137
Potassium 4.1
Chloride 104
Carbon Dioxide 27
BUN 19 H
Creatinine 0.7
Glucose 106 H
Calcium 8.4
Vital Signs:
Vital Signs
Temp Pulse Resp BP Pulse Ox
97.9 F 86 18 118/62 95
11/10/23 07:10 11/10/23 07:10 11/10/23 07:10 11/10/23 07:42 11/10/23 08:13
I&O
11/09/23 11/10/23 11/11/23
06:59 06:59 06:59
Intake Total 220 / 220 860 / 860
Output Total 0 / 0
Balance 220 / 220 860 / 860
Physical Exam
-
General: No Apparent Distress
HEENT: Normocephalic and Atraumatic
Respiratory: Negative Wheezes
Cardiac: Regular Rhythm and S1/S2
GI: Soft
Psych: Apparent Dementia
Data Reviewed
-
Total Time Spent with Patient (in minutes): 41
Labs: Labs Reviewed by me
[2023-11-10 11:40] VITALS: BP 109/65
--- NOTE | 2023-11-10 11:41 | W.DS.TRANS ---
DC Summary - Supervisor Partial Denture Department
-
Discharge Instructions:
Discharge Diagnosis/Procedures L hip dislocation s/p reduction 11/05 and repeat
fall with dislocation requiring additional
reduction 11/07
Diet Regular
Activity As tolerated
Additional Activity Weightbearing as tolerated left lower extremity
Posterior hip precautions. Abduction pillow
while in bed
Bathing Restrictions None
Other Services PT,OT
Instructions:
Stand-Alone Forms:
Changes to Home Medications: No
Discharge Medications:
DC Medications w/original date entered in [employer]
acetaminophen 325 mg tablet (Tylenol) 650 mg PO BID@0800,1930 Pain 10/18/23
acetaminophen 325 mg tablet (Tylenol) 650 mg PO BIDPRN PRN mild pain/fever>100.4 10/18/23
aspirin 81 mg chewable tablet 81 mg PO DAILY Blood Clot Prevention/Tx 10/18/23
bisacodyl 10 mg rectal suppository 10 mg [place] DAILYPRN PRN q 3 days if no BM and MOM/lactulose ineffective 10/18/23
carvedilol 3.125 mg tablet 3.125 mg PO BID@0830,1830 Heart Disease/Condition 10/18/23
magnesium hydroxide 400 mg/5 mL oral suspension (Milk of Magnesia) 30 ml PO HSPRN PRN constipation 10/18/23
sertraline 50 mg tablet 75 mg PO DAILY Mental Health/Anxiety 10/18/23
enoxaparin 40 mg/0.4 mL subcutaneous syringe 40 mg (0.4 mL) SC DAILY #1 mL 10/22/23
oxycodone 5 mg tablet 5 mg PO Q6HPRN PRN severe pain #10 tabs 11/10/23
tramadol 50 mg tablet 25 mg (1/2 x 50 mg) PO BID Pain #10 tabs 11/10/23
Home Medication Changes
Pending Results: No
Total time spent discharging patient (in min): 41
--- NOTE | 2023-11-10 12:04 | CM ---
Patient has been medically cleared for discharge back to [facility] for resumption of LTC services. Ambulance transport is scheduled for 1:00 PM.
NURSE TO NURSE REPORT # [phone]
FAX # [phone]
[2023-11-10] MEDS: ROXICODONE 10 MG PO (13:16)
--- NOTE | 2023-11-10 14:43 | PTCARENOTE ---
1245. 10mg Oxy given prior to discharge, since NH will not be have meds available right away. And pt is moaning in pain. Brief change for saturation. Family requested clothing and sneakers pt arrived in (as transport arrived). They stated went to
[facility] but not there requested we try to find?? telephone betting clerk called 2x to ED they looked for lost items but none there. Did pass on to family. All items packed (knee immobilizer included)
--- NOTE | 2023-11-11 13:33 | FALL ---
Late Entry, original incident report filed on day of fall.
Description of Fall: Fall was unwitnessed by this RN. Was in another patient's room 320 at the time, and was alerted by 2 RNs already in the room. The patient was on the floor, between the bed and the window, still in seated position on working
alarmed chair, which was on its side. All 3 nurses participated with assisting patient to the chair. She was assessed for injuries, and provider notified.
Injuries Noted:nickel size lump on left parietal area of head. No bleeding observed. Concern for possible re-injury to left hip.
Action Taken: Hospitalist Merrill notified, request for STAT head CT to f/u with pt who allegedly hit head, possibly on radiator and also, xray to L hip
Name of Provider Notified: Dr Momin
== END 2023-11-10 13:54 | DRG 560 ==
LOC: 2 SOUTH 17:10
PROVIDERS: Physician Assistant; Physician Assistant Medical; ADMITTING PHYSICIAN Internal Medicine; CONSULT PHYSICIAN Orthopaedic Surgery; EMERGENCY PHYSICIAN Emergency Medicine; FAMILY PHYSICIAN Student in an Organized Health Care Education/Training Program
PROC: 0SWEXJZ Revision of Synthetic Substitute in Left Hip Joint, Acetabular Surface, External Approach (ICD-10-PCS; 2023-11-06)
PROC: 30233N1 Transfusion of Nonautologous Red Blood Cells into Peripheral Vein, Percutaneous Approach (ICD-10-PCS; 2023-11-06)
DX: T84.021A Dislocation of internal left hip prosthesis, initial encounter (principal); D62 Acute posthemorrhagic anemia; F03.94 Unspecified dementia, unspecified severity, with anxiety; W19.XXXA Unspecified fall, initial encounter; Y79.2 Prosthetic and other implants, materials and accessory orthopedic devices associated with adverse incidents; Y92.129 Unspecified place in nursing home as the place of occurrence of the external cause; Y83.8 Other surgical procedures as the cause of abnormal reaction of the patient, or of later complication, without mention of misadventure at the time of the procedure; I10 Essential (primary) hypertension; G47.33 Obstructive sleep apnea (adult) (pediatric); K21.9 Gastro-esophageal reflux disease without esophagitis; D63.8 Anemia in other chronic diseases classified elsewhere; R29.6 Repeated falls; W07.XXXA Fall from chair, initial encounter; Y93.9 Activity, unspecified; Y92.239 Unspecified place in hospital as the place of occurrence of the external cause; Z66 Do not resuscitate; Z96.653 Presence of artificial knee joint, bilateral
CPT/HCPCS: 27265; 70450; 73502; 76000; 80048; 80053; 82607; 82728; 82746; 83540; 83550; 85025; 85027; 86850; 86900; 86901; 86920; 96360; 97163; 97166; 97167; 97530; 99152; 99285; P9016

== ENCOUNTER → 2023-11-19 10:17 | Outpatient (REF) | payer MEDICARE, OTHER, SELFPAY ==
[2023-11-19 11:34] LABS: Blood Urea Nitrogen 26 mg/dl (7-17); Calcium 8.7 mg/dl (8.4-10.2); Carbon Dioxide 25 mmol/L (22-30); Chloride 101 mmol/L (98-107); Glucose 118 mg/dl (70-99); Potassium 4.2 mmol/L (3.5-5.1); Sodium 134 mmol/L (135-145); eGFR > 60.00
[2023-11-19 11:38] LABS: % Basophils 0.5 % (0-2); % Eosinophils 0.3 % (0-6); % Immature Granulocytes 1.1 % (0-0.5); % Lymphocytes 10.9 % (20.5-51.1); % Monocytes 12.5 % (1.7-9.3); % Neutrophils 74.7 % (42.2-75.2); Absolute Basophils 0.1 10^3/uL (0-0.2); Absolute Immature Granulocytes 0.2 10^3/uL (0-0.05); Absolute Lymphocytes 1.6 10^3/uL (1.2-3.4); Absolute Monocytes 1.9 10^3/uL (0.1-0.6); Absolute Neutrophils 11.2 10^3/uL (1.4-6.5); Hematocrit 31.9 % (37.0-47.0); Hemoglobin 10.1 g/dL (12.0-16.0); Mean Corp Hgb Conc. 31.7 g/dL (33.0-37.0); Mean Corpuscular Hgb 30.5 pg (27.0-31.0); Mean Corpuscular Volume 96.4 fL (81.0-99.0); Mean Platelet Volume 11.2 fL (7.4-10.4); Nucleated Red Blood Cells % 0 %; Platelet Count 358 10^3/uL (130-400); Red Blood Cell Count 3.31 10^6/uL (4.20-5.40); Red Cell Dist. Width 13.9 % (11.5-14.5)
== END ==
LOC: OLABN 10:17
PROVIDERS: ATTENDING PHYSICIAN Student in an Organized Health Care Education/Training Program
DX: R50.9 Fever, unspecified (principal)
CPT/HCPCS: 36415; 80048; 85025

== ENCOUNTER 2023-12-04 12:13 | Emergency (ER) | payer MEDICARE, OTHER, SELFPAY ==
[2023-12-04 12:18] VITALS: BP 105/70
--- NOTE | 2023-12-04 13:18 | ED.MUSCINJ ---
HPI-Injury
General
Chief Complaint: Musculo-Skeletal Complaint
Source: patient
Exam Limitations: none
Time Seen by Provider: 12/04/23 12:24
History of Present Illness-Injury
Initial Injury comments:
88-year-old female presents from [facility] with potential left hip recurrent dislocation. She has a history of dementia. She is nonverbal. She is nonambulatory. She was here a month ago for the same. She needed to be admitted to the OR
for reduction of her bipolar hemiarthroplasty. Staff noticed today that her leg was different and suspected another dislocation.
Past History
Past History
ED Past Medical History: CAD, HTN, Hypercholesterolemia and Other (Sleep apnea, dementia)
ED Past Surgical History: None
Social History
Tobacco: Non-smoker
Alcohol: Occasional
Personal:
Living: with family
Phy Exam
Physical Exam
Physical Exam:
General: Well-appearing female does not appear uncomfortable
HEENT: Normocephalic atraumatic
Heart: Regular rate and rhythm
Musculoskeletal exam: Left leg slightly shortened no significant tenderness palpation about the left hip in an abduction pillow
Injury Course
Orders/Labs/Results
Orders:
Orders
12/04/23 12:23
Hip, Left 2-3 Views [CR Hip - LT w/wo Pel 2-3 Vw*] Urgent
Comment:
Reason For Exam: DISLOCATION
Include a pelvis x-ray?: Yes
MDM/Problems Addressed
Differential Diagnosis Includes:
Possible recurrent left hip dislocation. X-rays pending
I have visualized x-rays of the left hip which demonstrate a superior dislocation of the hemiarthroplasty of the left hip. I spoke with orthopedics who has been in contact with the patient's son and power of deputy county attorney. At this point the family does
not want any intervention on the hip dislocation. They feel she did not do well after the last episode . Per family request patient will be sent back to the family without a further intervention
*Critical Care Note
Total Time (30-74mins, 75-104mins- exclusive of procedures): Not Applicable
ED Attending Note
-
Portions of this chart may have been created with voice recognition software.� Occasional wrong word or��sound alike� substitutions may have occurred due to the inherent limitations of voice recognition software.
Discharge Plan
Departure
Patient Disposition: Home (Routine Discharge)
Date of Disposition: 12/04/23
Time of Disposition: 13:21
Patient with high blood pressure during this ER visit?: No
Discharge Problem:
Closed dislocation of left hip
Instructions: Muscle and Bone Pain (DC)
Prescriptions:
No Action
acetaminophen [Tylenol] 325 mg Tablet
650 mg PO BID@0800,1930 MDD 3000 mg
acetaminophen [Tylenol] 325 mg Tablet
650 mg PO BIDPRN MDD 3000 mg PRN (Reason: mild pain/fever>100.4)
carvedilol 3.125 mg Tablet
3.125 mg PO BID@0830,1830
magnesium hydroxide [Milk of Magnesia] 400 mg/5 mL Suspension
30 ml PO HSPRN PRN (Reason: constipation)
bisacodyl 10 mg Suppository
10 mg [place] DAILYPRN PRN (Reason: q 3 days if no BM and MOM/lactulose ineffective)
aspirin 81 mg Tablet,Chewable
81 mg PO DAILY
sertraline 50 mg Tablet
75 mg PO DAILY
enoxaparin 40 mg/0.4 mL Syringe
40 mg SC DAILY Qty: 1 0RF
Rx Instructions:
for 26 more days, ending on 11/17/2023
oxycodone 5 mg Tablet
5 mg PO Q6HPRN PRN (Reason: severe pain) Qty: 10 0RF
tramadol 50 mg Tablet
25 mg PO BID Qty: 10 0RF
Rx Instructions:
ending on 11/12/2023
Referrals:
UNKNOWN,NO INTERVIEW [Family Provider] -
Activity Restrictions/Additional Instructions:
The patient has a dislocated left hip. The family has requested not to reduce the hip and let it be dislocated. Please return if needed
Interventions
Interventions:
*Risk Screen - Suicide Last Done: 12/04/23 12:18
*General Assessment Last Done: 12/04/23 12:18
*Neglect/Abuse Screening Last Done: 12/04/23 12:18
ED- Fall Risk Assessment Last Done: 12/04/23 12:18
*ED COVID-19 Vaccine History Last Done: 12/04/23 12:18
ED-Musculoskeletal Assessment Last Done: 12/04/23 12:18
Discharge Date and Time
Print Language: [id number]
[2023-12-04 14:33] VITALS: BP 110/80
== END 2023-12-04 14:35 | disposition home or self-care (01) ==
LOC: EMR 12:13
PROVIDERS: EMERGENCY PHYSICIAN Emergency Medicine
DX: S73.005A Unspecified dislocation of left hip, initial encounter (principal); X58.XXXA Exposure to other specified factors, initial encounter; F03.90 Unspecified dementia, unspecified severity, without behavioral disturbance, psychotic disturbance, mood disturbance, and anxiety; I25.10 Atherosclerotic heart disease of native coronary artery without angina pectoris; I10 Essential (primary) hypertension; E78.00 Pure hypercholesterolemia, unspecified; G47.30 Sleep apnea, unspecified; Z96.642 Presence of left artificial hip joint
CPT/HCPCS: 99283; 73502

== ENCOUNTER → 2023-12-23 11:03 | Outpatient (REF) | payer MEDICARE, OTHER, SELFPAY ==
[2023-12-23 12:14] LABS: % Eosinophils 5.3 % (0-6); % Immature Granulocytes 1.2 % (0-0.5); % Lymphocytes 22.9 % (20.5-51.1); % Monocytes 9.1 % (1.7-9.3); % Neutrophils 60.5 % (42.2-75.2); Absolute Basophils 0.1 10^3/uL (0-0.2); Absolute Eosinophils 0.4 10^3/uL (0-0.7); Absolute Immature Granulocytes 0.1 10^3/uL (0-0.05); Absolute Lymphocytes 1.6 10^3/uL (1.2-3.4); Absolute Monocytes 0.6 10^3/uL (0.1-0.6); Absolute Neutrophils 4.2 10^3/uL (1.4-6.5); Hematocrit 35.6 % (37.0-47.0); Hemoglobin 11.2 g/dL (12.0-16.0); Mean Corp Hgb Conc. 31.5 g/dL (33.0-37.0); Mean Corpuscular Hgb 28.6 pg (27.0-31.0); Mean Corpuscular Volume 90.8 fL (81.0-99.0); Mean Platelet Volume 11.4 fL (7.4-10.4); Nucleated Red Blood Cells % 0 %; Platelet Count 269 10^3/uL (130-400); Red Blood Cell Count 3.92 10^6/uL (4.20-5.40); Red Cell Dist. Width 15.1 % (11.5-14.5); White Blood Cell Count 6.9 10^3/uL (4.8-10.8)
[2023-12-23 12:18] LABS: Blood Urea Nitrogen 35 mg/dl (7-17); Calcium 9.5 mg/dl (8.4-10.2); Carbon Dioxide 30 mmol/L (22-30); Chloride 103 mmol/L (98-107); Glucose 93 mg/dl (70-99); Potassium 4.1 mmol/L (3.5-5.1); Sodium 138 mmol/L (135-145); eGFR > 60.00
== END ==
LOC: OLABN 11:03
PROVIDERS: ATTENDING PHYSICIAN Student in an Organized Health Care Education/Training Program
DX: I25.10 Atherosclerotic heart disease of native coronary artery without angina pectoris (principal); I10 Essential (primary) hypertension
CPT/HCPCS: 36415; 80048; 85025